=== PATIENT | female | born 1955 | race Caucasian/White ===

== ENCOUNTER 2019-02-19 18:21 | Inpatient (IN) ==
--- OUTSIDE RECORDS SUMMARY | 2019-02-19 18:24 | External Medical Summary | Continuity of Care Document ---
:1955 Author Name Billie Gong, Provider Address Unavailable Unavailable , Care Team Providers Name Role Phone Constance Wright M.D. Unavailable [email or web address], [email or web address] Unavailable Unavailable Problems Active medical history not documented Allergies and Adverse Reactions Allergy history not documented Medications Medications not documented Procedures Procedures not documented Immunizations Immunizations not documented Plan of Treatment Planned Observations Planned Goals not documented Results No Known Results Results not documented
[2019-02-19 18:47] LABS: Basophils # (auto) 0.03 K/uL (0-0.2); Basophils % (auto) 0.3 %; Eosinophils # (auto) 0.21 K/uL (0-0.5); Eosinophils % (auto) 2.1 %; Hematocrit (blood only) 37.1 % (37-47); Hemoglobin 12.2 g/dL (12.0-16.0); Immature Granulocytes # (auto) 0.04 K/uL (0.00-0.02); Immature Granulocytes % (auto) 0.4 %; Lymphocytes # (auto) 2.28 K/uL (1.2-3.4); Lymphocytes % (auto) 23.3 %; Mean Corpuscular Hgb Conc 32.9 g/dL (32-36); Mean Corpuscular Volume 79.6 fL (80-100); Mean Platelet Volume 9.7 fL (7.4-10.4); Monocytes # (auto) 0.52 K/uL (0.11-0.59); Monocytes % (auto) 5.3 %; Neutrophils # (auto) 6.71 K/uL (1.4-6.5); Neutrophils % (auto) 68.6 %; Platelet Count 286 K/uL (130-400); RDW Coefficient of Variation 14.8 % (11.5-14.5); RDW Standard Deviation 42.6 fL (36.4-46.3); Red Blood Count 4.66 M/uL (4.2-5.4); White Blood Count 9.79 K/uL (4.8-10.8)
[2019-02-19 18:56] LABS: iSTAT Creatinine 0.6 mg/dl (0.6-1.3); iSTAT Hemoglobin 11.9 g/dl (12.0-16.0); iSTAT Ionized Calcium 1.08 mmol/l (1.12-1.32); iSTAT Potassium 3.9 mEq/L (3.3-5.0)
[2019-02-19 18:59] LABS: Partial Thromboplastin Ratio 0.9; Partial Thromboplastin Time 25.6 Seconds (21.0-31.0); Prothrombin Time 10.5 Seconds (9.0-12.0)
[2019-02-19] MEDS ORDERED: OPTIRAY 320 125ml IV PRN (19:02)
--- NOTE | 2019-02-19 19:04 | CT Scan Report ---
CT head/brain wo con CT DOSE: HISTORY: Status change Stroke evaluation TECHNIQUE: Multiaxial CT images of the head were performed without the use of intravenous contrast. A dose lowering technique was utilized adhering to the principles of ALARA. Comparison: None. Findings: The paranasal sinuses and mastoid air cells are clear. Small old right internal capsule inf arct. Subacute right periventricular infarct. No acute intracranial hemorrhage. No midline shift. Impression: 1. Subacute right periventricular infarct. 2. 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 3. No acute intracranial hemorrhage. The above report was generated using voice recognition software. It may contain grammatical, syntax or spelling errors. Electronically signed by: Fercho Hernandez M.D. 02/19/2019 6:57 PM
--- NOTE | 2019-02-19 19:04 | CT Scan Report ---
CT angio head w con HISTORY: Mental status change stroke TECHNIQUE: Multiaxial CT angiography of the head was performed IV contrast: 100 cc. Maximum intensity projection images were also obtained. A dose lowering technique was utilized adhering to t he principles of ALARA. COMPARISON: None. FINDINGS: There is no mass, hematoma, midline shift, or acute infarct. Visualized intracranial international trade analyst al carotid arteries, distal vertebral arteries, and basilar artery are widely patent. There is no sig nificant stenosis, occlusion, or aneurysm seen within the bilateral ACAs, MCAs, or perinatal breastfeeding assistant. IMPRESSION: No significant stenosis, occlusion, or aneurysm within the [place]. The above report was generated using voice recognition software. It may contain grammatical, syntax or spelling errors. Electronically signed by: Fercho Hernandez M.D. 02/19/2019 7:00 PM
--- NOTE | 2019-02-19 19:10 | CT Scan Report ---
CT angio neck with con HISTORY: Mental status change stroke TECHNIQUE: Multiaxial CT angiography of the neck was performed IV contrast: 100 cc All measure ments were calculated based on NASCET criteria. Maximum intensity projection images were also obtain ed. A dose lowering technique was utilized adhering to the principles of ALARA. COMPARISON STUDY: None. FINDINGS: The aortic arch and proximal great vessels are widely patent. There is no significant sten osis, occlusion, or dissection identified within the bilateral common carotid, internal carotid, or v ertebral arteries. IMPRESSION: No significant stenosis, occlusion, or dissection identified within the carotid or vertebral arteries . The above report was generated using voice recognition software. It may contain grammatical, syntax or spelling errors. Electronically signed by: Fercho Hernandez M.D. 02/19/2019 7:09 PM
[2019-02-19] MEDS ORDERED: LABETALOL HCL IV 5 MG/ML 20ML IV ONE (19:18)
[2019-02-19 19:32] LABS: Alanine Aminotransferase 28 U/L (12-78); Albumin Level 3.5 gm/dl (3.4-5.0); Aspartate Aminotransferase 19 U/L (15-37); BUN Creatinine Ratio 24.6 (10-20); Blood Urea Nitrogen 20 mg/dl (7-18); Calcium 8.5 mg/dl (8.5-10.1); Carbon Dioxide 27 mmol/L (21-32); Chloride 104 mmol/L (98-107); Est GFR (African American) 91.6; Glucose 226 mg/dl (70-99); Magnesium 1.6 mg/dl (1.8-2.4); Potassium 3.9 mmol/L (3.5-5.1); Sodium 139 mmol/L (136-145)
[2019-02-19 19:39] LABS: Albumin Globulin Ratio 0.9 (0.9-2); Alkaline Phosphatase 76 U/L (45-117); Bilirubin,Total 0.3 mg/dl (0.2-1); Globulin 3.9 gm/dl (2.5-4.0); Total Protein 7.4 gm/dl (6.4-8.2); Troponin I < 0.015 ng/ml (0-0.045)
--- NOTE | 2019-02-19 19:44 | Emergency Department Note ---
Entered by Chava Cuellar acting as a scribe for Zane Mijares M.D. History of Present Illness General Chief complaint: Stroke Alert Stated complaint: FACIAL NUMBNESS Source: patient and EMS History of Present Illness Provider complaint: Facial numbness Onset (ago): hour(s) (Today) Location: face Radiation: non-radiation Pain Consistency: + intermittent Quality: + other (Numbness) Relieved By: + none Exacerbated By: + none Associated symptoms: + other (No falls) The patient is a 63 year old female who presents to the Emergency Room via EMS with complaints of intermittent right sided facial numbness that started today around 3.5 hours ago. Per EMS the patient was hypertensive on scene with a systolic pressure of 210. En route the patient had an episode of muscle contractions where she was unable to speak. After the episode she told EMS that it was because her face is numb. Just prior to arrival the patient became nonv erbal but can still understand commands. The patient has a history of a stroke 9 years ago leaving her with baseline left sided weakness and speech impairments. The patient denies any falls or if something like this has ever happened before. The patient does not take any blood thinners but does take Aspirin daily. Home Medications Home Medications Medication Instructions Recorded Confirmed Type aspirin [Aspir-81] 81 mg PO DAILY 02/19/19 02/19/19 History baclofen 20 mg PO BID 02/19/19 02/19/19 History carvedilol 12.5 mg PO BID 02/19/19 02/19/19 History cyanocobalamin (vitamin B-12) 1,000 mcg PO DAILY 02/19/19 02/19/19 History diclofenac sodium 75 mg PO BID 02/19/19 02/19/19 History furosemide 20 mg PO DAILY 02/19/19 02/19/19 History insulin aspart U-100 [Novolog 10 unit SUBCUT AC 02/19/19 02/19/19 History Flexpen U-100 Insulin] insulin glargine [Basaglar KwikPen 44 unit SUBCUT HS 02/19/19 02/19/19 History U-100 Insulin] losartan-hydrochlorothiazide 1 tab PO DAILY 02/19/19 02/19/19 History magnesium oxide 400 mg PO DAILY 02/19/19 02/19/19 History metformin 1,000 mg PO BID 02/19/19 02/19/19 History omeprazole 20 mg PO DAILY 02/19/19 02/19/19 History potassium chloride 10 meq PO BID 02/19/19 02/19/19 History rosuvastatin 20 mg PO DAILY 02/19/19 02/19/19 History trazodone 50 mg PO HS 02/19/19 02/19/19 History Allergies Allergy/AdvReac Type Severity Reaction Status Date / Time No Known Allergies Allergy Unverified 02/19/19 20:08 Past Med/Surg History Medical History CVA (cerebral vascular accident) Diabetes HLD (hyperlipidemia) Hypertension Family History Other Family history non-contributory Social History Preferred Language: Italian Communication Ability: Effective Automatic Silk Screen Printer Required: No Beliefs That Will Affect Care: None Current Living Situation: Alone Current Living Situation Comment: Patient states she lived alone at home with her dog Other Information That Helps Us Care for You: No Feels Safe at Home: Yes Safety Concerns: Feels Safe At This Time Smoking Status: Former smoker Do You Dip or Chew Tobacco: No Second Hand Exposure: No Tobacco Cessation Education Requested by Patient: No Hx Alcohol Use: No Hx Substance Use: No Review of Systems See HPI for pertinent positives & negatives. and A total of 10 systems reviewed and were otherwise negative Physical Exam Vital Signs Vital Signs - 24 hr 02/19/19 18:30 02/19/19 18:56 02/19/19 19:02 Temperature 36.9 C Temperature Source Oral Sepsis Recent Fever Within 48 Hours No Sepsis New/Unexplained Change in Mental Status No Sepsis Action Taken by Nursing No Action Required Pulse Rate 72 Pulse Rate [Apical] 86 80 Pulse Rhythm Regular Pulse Rhythm [Apical] Regular Pulse Strength Normal Pulse Strength [Apical] Normal Respiratory Rate 16 17 22 Respiratory Effort / Characteristics Non-Labored Non-Labored Non-Labored Respiratory Depth Normal Normal Normal Respiratory Pattern Regular Regular Regular Blood Pressure 210/131 H Blood Pressure [Left Arm] 186/74 H 201/98 H Blood Pressure Mean 157 Blood Pressure Mean [Left Arm] 111 132 Blood Pressure Position Lying Blood Pressure Position [Left Arm] Lying Lying Pulse Oximetry 96 93 93 Oxygen Delivery Method Room Air Room Air Room Air 02/19/19 19:16 02/19/19 19:23 02/19/19 19:31 Temperature Temperature Source Sepsis Recent Fever Within 48 Hours Sepsis New/Unexplained Change in Mental Status Sepsis Action Taken by Nursing Pulse Rate Pulse Rate [Apical] 74 72 67 Pulse Rhythm Pulse Rhythm [Apical] Regular Regular Pulse Strength Pulse Strength [Apical] Normal Normal Respiratory Rate 22 26 H 15 Respiratory Effort / Characteristics Non-Labored Non-Labored Non-Labored Respiratory Depth Normal Normal Normal Respiratory Pattern Regular Regular Regular Blood Pressure Blood Pressure [Left Arm] 223/101 H 185/108 H 177/92 H Blood Pressure Mean Blood Pressure Mean [Left Arm] 141 133 120 Blood Pressure Position Blood Pressure Position [Left Arm] Lying Lying Lying Pulse Oximetry 94 94 96 Oxygen Delivery Method Room Air Room Air Room Air 02/19/19 20:02 02/19/19 20:21 02/19/19 20:30 Temperature Temperature Source Sepsis Recent Fever Within 48 Hours Sepsis New/Unexplained Change in Mental Status Sepsis Action Taken by Nursing Pulse Rate Pulse Rate [Apical] 70 72 64 Pulse Rhythm Pulse Rhythm [Apical] Regular Regular Regular Pulse Strength Pulse Strength [Apical] Normal Normal Normal Respiratory Rate 22 20 22 Respiratory Effort / Characteristics Non-Labored Non-Labored Non-Labored Respiratory Depth Normal Normal Normal Respiratory Pattern Regular Regular Regular Blood Pressure Blood Pressure [Left Arm] 195/100 H 218/90 H 179/95 H Blood Pressure Mean Blood Pressure Mean [Left Arm] 131 132 123 Blood Pressure Position Blood Pressure Position [Left Arm] Lying Lying Lying Pulse Oximetry 94 94 94 Oxygen Delivery Method Room Air Room Air Room Air 02/19/19 20:57 Temperature Temperature Source Sepsis Recent Fever Within 48 Hours Sepsis New/Unexplained Change in Mental Status Sepsis Action Taken by Nursing Pulse Rate Pulse Rate [Apical] 71 Pulse Rhythm Pulse Rhythm [Apical] Regular Pulse Strength Pulse Strength [Apical] Normal Respiratory Rate 22 Respiratory Effort / Characteristics Non-Labored Respiratory Depth Normal Respiratory Pattern Regular Blood Pressure Blood Pressure [Left Arm] 220/93 H Blood Pressure Mean Blood Pressure Mean [Left Arm] 135 Blood Pressure Position Blood Pressure Position [Left Arm] Lying Pulse Oximetry 94 Oxygen Delivery Method Room Air GENERAL: Awake, alert, anxious but not able to talk HENT: Normocephalic, atraumatic. EYES: Normal conjunctiva. Sclera non-icteric. PERRL, EOMI, no nystagmus. NECK: Supple. No nuchal rigidity. RESPIRATORY: Clear to auscultation. No wheezes. Normal respiratory effort. CARDIAC: Normal rate. Normal rhythm. Extremities warm and well perfused. GI: Soft, non-distended. No tenderness to palpation. No masses. RECTAL: Deferred. MUSCULOSKELETAL: Atraumatic. Chest examination reveals no tenderness. LOWER EXTREMITIES: Calves are equal size bilaterally and non-tender. No edema NEURO: Aphasic, will mumble, nods yes and no to questions. No facial droop. Minimal movement with contracture of the LUE. 3/5 strength of the LLE. 5/5 strength of the RLE and RUE. SKIN: Warm and dry. No rash or jaundice noted. Course 1825: The patient was evaluated in room A11B, and a complete history and physical examination were performed. 1839: I spoke to Dr. Sarah Goins about the patient's case. He is going to evaluate her via video chat. 1926: I spoke to Dr. Sarah Goins after he evaluated the patient. He does not recommend TPA and it should be treated as a hypertension emergency. He recommends blood pressure control and admission. 1944: I spoke to Dr. Ned Kidd about the patient's case and he is going accept her for further evaluation. 1950: I reevaluated the patient and updated her on the treatment plan. Consultations Consultation #1: I spoke to Dr. Sarah Goins about the patient's case. He is going to evaluate her via video chat. Time: 18:40 Consultation #2: I spoke to Dr. Sarah Goins after he evaluated t he patient. He does not recommend TPA and it should be treated as a hypertension emergency. He recommends blood pressure control and admission. Time: 19:27 Consultation #3: I spoke to Dr. Ned Kidd about the patient's case and he is going accept her for further evaluation. Time: 19:45 Administered Medications Labetalol HCl (Normodyne) 10 mg IV Q4H PRN PRN Reason: Hypertension Stop: 03/21/19 20:59 Last Admin: 02/19/19 21:05 Dose: 10 mg Documented by: [id number] Cosigned by: [id number] Discontinued Medications Ioversol (Optiray 320 125ml) 121 ml IV ONCE PRN PRN Reason: Interaction Checking Stop: 02/23/19 19:01 Last Admin: 02/19/19 19:02 Dose: 121 ml Documented by: [id number] Labetalol HCl (Normodyne) Confirm Administered Dose 5 mg IV .STK-MED ONE Stop: 02/19/19 19:19 Last Admin: 02/19/19 19:19 Dose: 10 mg Documented by: [id number] Cosigned by: [id number] Medical Decision Making Differential Diagnosis Differential Diagnosis includes but is not limited to ischemic Stroke, hemorrhagic stroke, bells palsy, mass, neoplasm, migraine headache, seizure, subarachnoid hemorrhage, TIA, and transient global amnesia. Medical Records Attestation: I reviewed the patient's medical records. Home Medications Current Medication List: was personally reviewed by me Laboratory Data Attestation: I reviewed the patient's lab results. Result diagrams: 02/19/19 18:38 02/19/19 18:38 Lab Results 02/19/19 02/19/19 02/19/19 Range/Units 18:28 18:38 18:38 WBC 9.79 (4.8-10.8) K/uL RBC 4.66 (4.2-5.4) M/uL Hgb 12.2 (12.0-16.0) g/dL POC Hgb (12.0-16.0) g/dl Hct 37.1 (37-47) % POC Hct (37-47) % MCV 79.6 L (80-100) fL MCH 26.2 (25-34) pg MCHC 32.9 (32-36) g/dL RDW Std Deviation 42.6 (36.4-46.3) fL RDW Coeff of Kimberly 14.8 H (11.5-14.5) % Plt Count 286 (130-400) K/uL MPV 9.7 (7.4-10.4) fL Immature Gran % (Auto) 0.4 % Neut % (Auto) 68.6 % Lymph % (Auto) 23.3 % [place] % (Auto) 5.3 % Eos % (Auto) 2.1 % Baso % (Auto) 0.3 % Immature Gran # (Auto) 0.04 H (0.00-0.02) K/uL Neut # (Auto) 6.71 H (1.4-6.5) K/uL Lymph # (Auto) 2.28 (1.2-3.4) K/uL [place] # (Auto) 0.52 (0.11-0.59) K/uL Eos # (Auto) 0.21 (0-0.5) K/uL Baso # (Auto) 0.03 (0-0.2) K/uL PT 10.5 (9.0-12.0) Seconds INR 1.0 (0.9-1.1) APTT 25.6 (21.0-31.0) Seconds PTT Ratio 0.9 POC Sodium (135-144) mEq/L Sodium (136-145) mmol/L POC Potassium (3.3-5.0) mEq/L Potassium (3.5-5.1) mmol/L POC Chloride (101-112) mEq/L Chloride (98-107) mmol/L Carbon Dioxide (21-32) mmol/L POC Total CO2 (24-31) mEq/l Anion Gap (3-11) POC Anion Gap (16-25) mmol/L POC BUN (7-18) mg/dl BUN (7-18) mg/dl Creatinine (0.6-1.2) mg/dl POC Creatinine (0.6-1.3) mg/dl Est Cr Clr Drug Dosing ml/min Est GFR ( Amer) Est GFR (Non-Af Amer) BUN/Creatinine Ratio (10-20) Glucose (70-99) mg/dl POC Glucose 223 H (70-99) POC Glucose (other) (70-99) mg/dl Calcium (8.5-10.1) mg/dl POC Ioniz Calcium Ning (1.12-1.32) mmol/l Magnesium (1.8-2.4) mg/dl Total Bilirubin (0.2-1) mg/dl AST (15-37) U/L ALT (12-78) U/L Alkaline Phosphatase (45-117) U/L Troponin I (0-0.045) ng/ml Total Protein (6.4-8.2) gm/dl Albumin (3.4-5.0) gm/dl Globulin (2.5-4.0) gm/dl Albumin/Globulin Ratio (0.9-2) TSH (0.300-4.500) uIu/ml Specimen Hemolysis Urine Color Urine Appearance (Clear) Urine pH (4.5-7.5) Ur Specific [place] (1.000-1.030) Urine Protein (Negative) Urine Glucose (UA) (Negative) Urine Ketones (Negative) Urine Blood (Negative) Urine Nitrite (Negative) Urine Bilirubin (Negative) Urine Urobilinogen (Negative) Ur Leukocyte Esterase (Negative) Urine WBC (Auto) (0-5) /hpf Urine RBC (Auto) (0-4) /hpf U Hyaline Cast (Auto) (0-5) /lpf U Epithel Cells (Auto) (0-5) /lpf Urine Bacteria (Auto) (Negative) Blood Type Antibody Screen 02/19/19 02/19/19 02/19/19 Range/Units 18:38 18:38 18:44 WBC (4.8-10.8) K/uL RBC (4.2-5.4) M/uL Hgb (12.0-16.0) g/dL POC Hgb 11.9 L (12.0-16.0) g/dl Hct (37-47) % POC Hct 35 L (37-47) % MCV (80-100) fL MCH (25-34) pg MCHC (32-36) g/dL RDW Std Deviation (36.4-46.3) fL RDW Coeff of Kimberly (11.5-14.5) % Plt Count (130-400) K/uL MPV (7.4-10.4) fL Immature Gran % (Auto) % Neut % (Auto) % Lymph % (Auto) % [place] % (Auto) % Eos % (Auto) % Baso % (Auto) % Immature Gran # (Auto) (0.00-0.02) K/uL Neut # (Auto) (1.4-6.5) K/uL Lymph # (Auto) (1.2-3.4) K/uL [place] # (Auto) (0.11-0.59) K/uL Eos # (Auto) (0-0.5) K/uL Baso # (Auto) (0-0.2) K/uL PT (9.0-12.0) Seconds INR (0.9-1.1) APTT (21.0-31.0) Seconds PTT Ratio POC Sodium 140 (135-144) mEq/L Sodium 139 (136-145) mmol/L POC Potassium 3.9 (3.3-5.0) mEq/L Potassium 3.9 (3.5-5.1) mmol/L POC Chloride 104 (101-112) mEq/L Chloride 104 (98-107) mmol/L Carbon Dioxide 27 (21-32) mmol/L POC Total CO2 27 (24-31) mEq/l Anion Gap 8.0 (3-11) POC Anion Gap 13.0 L (16-25) mmol/L POC BUN 22 H (7-18) mg/dl BUN 20 H (7-18) mg/dl Creatinine 0.80 (0.6-1.2) mg/dl POC Creatinine 0.6 (0.6-1.3) mg/dl Est Cr Clr Drug Dosing 84.0 ml/min Est GFR ( Amer) 91.6 Est GFR (Non-Af Amer) 79.0 BUN/Creatinine Ratio 24.6 H (10-20) Glucose 226 H (70-99) mg/dl POC Glucose (70-99) POC Glucose (other) 233 H (70-99) mg/dl Calcium 8.5 (8.5-10.1) mg/dl POC Ioniz Calcium Ning 1.08 L (1.12-1.32) mmol/l Magnesium 1.6 L (1.8-2.4) mg/dl Total Bilirubin 0.3 (0.2-1) mg/dl AST 19 (15-37) U/L ALT 28 (12-78) U/L Alkaline Phosphatase 76 (45-117) U/L Troponin I < 0.015 (0-0.045) ng/ml Total Protein 7.4 (6.4-8.2) gm/dl Albumin 3.5 (3.4-5.0) gm/dl Globulin 3.9 (2.5-4.0) gm/dl Albumin/Globulin Ratio 0.9 (0.9-2) TSH 3.540 (0.300-4.500) uIu/ml Specimen Hemolysis Urine Color Urine Appearance (Clear) Urine pH (4.5-7.5) Ur Specific [place] (1.000-1.030) Urine Protein (Negative) Urine Glucose (UA) (Negative) Urine Ketones (Negative) Urine Blood (Negative) Urine Nitrite (Negative) Urine Bilirubin (Negative) Urine Urobilinogen (Negative) Ur Leukocyte Esterase (Negative) Urine WBC (Auto) (0-5) /hpf Urine RBC (Auto) (0-4) /hpf U Hyaline Cast (Auto) (0-5) /lpf U Epithel Cells (Auto) (0-5) /lpf Urine Bacteria (Auto) (Negative) Blood Type A Positive Antibody Screen NEGATIVE 02/19/19 Range/Units 20:21 WBC (4.8-10.8) K/uL RBC (4.2-5.4) M/uL Hgb (12.0-16.0) g/dL POC Hgb (12.0-16.0) g/dl Hct (37-47) % POC Hct (37-47) % MCV (80-100) fL MCH (25-34) pg MCHC (32-36) g/dL RDW Std Deviation (36.4-46.3) fL RDW Coeff of Kimberly (11.5-14.5) % Plt Count (130-400) K/uL MPV (7.4-10.4) fL Immature Gran % (Auto) % Neut % (Auto) % Lymph % (Auto) % [place] % (Auto) % Eos % (Auto) % Baso % (Auto) % Immature Gran # (Auto) (0.00-0.02) K/uL Neut # (Auto) (1.4-6.5) K/uL Lymph # (Auto) (1.2-3.4) K/uL [place] # (Auto) (0.11-0.59) K/uL Eos # (Auto) (0-0.5) K/uL Baso # (Auto) (0-0.2) K/uL PT (9.0-12.0) Seconds INR (0.9-1.1) APTT (21.0-31.0) Seconds PTT Ratio POC Sodium (135-144) mEq/L Sodium (136-145) mmol/L POC Potassium (3.3-5.0) mEq/L Potassium (3.5-5.1) mmol/L POC Chloride (101-112) mEq/L Chloride (98-107) mmol/L Carbon Dioxide (21-32) mmol/L POC Total CO2 (24-31) mEq/l Anion Gap (3-11) POC Anion Gap (16-25) mmol/L POC BUN (7-18) mg/dl BUN (7-18) mg/dl Creatinine (0.6-1.2) mg/dl POC Creatinine (0.6-1.3) mg/dl Est Cr Clr Drug Dosing ml/min Est GFR ( Amer) Est GFR (Non-Af Amer) BUN/Creatinine Ratio (10-20) Glucose (70-99) mg/dl POC Glucose (70-99) POC Glucose (other) (70-99) mg/dl Calcium (8.5-10.1) mg/dl POC Ioniz Calcium Ning (1.12-1.32) mmol/l Magnesium (1.8-2.4) mg/dl Total Bilirubin (0.2-1) mg/dl AST (15-37) U/L ALT (12-78) U/L Alkaline Phosphatase (45-117) U/L Troponin I (0-0.045) ng/ml Total Protein (6.4-8.2) gm/dl Albumin (3.4-5.0) gm/dl Globulin (2.5-4.0) gm/dl Albumin/Globulin Ratio (0.9-2) TSH (0.300-4.500) uIu/ml Specimen Hemolysis Urine Color Yellow Urine Appearance Clear (Clear) Urine pH 5.0 (4.5-7.5) Ur Specific [place] > 1.045 H (1.000-1.030) Urine Protein Negative (Negative) Urine Glucose (UA) 2+ H (Negative) Urine Ketones Negative (Negative) Urine Blood Negative (Negative) Urine Nitrite Negative (Negative) Urine Bilirubin Negative (Negative) Urine Urobilinogen Negative (Negative) Ur Leukocyte Esterase 1+ H (Negative) Urine WBC (Auto) 10-30 H (0-5) /hpf Urine RBC (Auto) 0-4 (0-4) /hpf U Hyaline Cast (Auto) 0 (0-5) /lpf U Epithel Cells (Auto) >30 H (0-5) /lpf Urine Bacteria (Auto) 1+ H (Negative) Blood Type Antibody Screen Imaging Data Radiologist's Impression: Radiology results as stated below per my review and the radiologist's interpretation: XR chest 1V portable CLINICAL HISTORY: sob dyspnea COMPARISON STUDY: No previous studies for comparison. FINDINGS: Mild cardiomegaly. Prominent pulmonary vasculature. No focal infiltrate. Diaphragms smooth. IMPRESSION: Pulmonary vascular congestion. The above report was generated using voice recognition software. It may contain grammatical, syntax or spelling errors. Electronically signed by: Fercho Hernandez M.D. 02/19/2019 7:[address] angio head w con HISTORY: Mental status change stroke TECHNIQUE: Multiaxial CT angiography of the head was performed IV contrast: 100 cc. Maximum intensity projection images were also obtained. A dose lowering technique was utilized adhering to the principles of ALARA. COMPARISON: None. FINDINGS: There is no mass, hematoma, midline shift, or acute infarct. Visualized intracranial internal carotid arteries, distal vertebral arteries, and basilar artery are widely patent. There is no significant stenosis, occlusion, or aneurysm seen within the bilateral ACAs, MCAs, or spray worker. IMPRESSION: No significant stenosis, occlusion, or aneurysm within the [place]. The above report was generated using voice recognition software. It may contain grammatical, syntax or spelling errors. Electronically signed by: Fercho Hernandez M.D. 02/19/2019 7:[address] head/brain wo con CT DOSE: HISTORY: Status change Stroke evaluation TECHNIQUE: Multiaxial CT images of the head were performed without the use of intravenous contrast. A dose lowering technique was utilized adhering to the principles of ALARA. Comparison: None. Findings: The paranasal sinuses and mastoid air cells are clear. Small old right internal capsule infarct. Subacute right periventricular infarct. No acute intracranial hemorrhage. No midline shift. Impression: 1. Subacute right periventricular infarct. 2. 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 3. No acute intracranial hemorrhage. The above report was generated using voice recognition software. It may contain grammatical, syntax or spelling errors. Electronically signed by: Fercho Hernandez M.D. 02/19/2019 6:[address] angio neck with con HISTORY: Mental status change stroke TECHNIQUE: Multiaxial CT angiography of the neck was performed IV contrast: 100 cc All measurements were calculated based on NASCET criteria. Maximum intensity projection images were also obtained. A dose lowering technique was utilized adhering to the principles of ALARA. COMPARISON STUDY: None. FINDINGS: The aortic arch and proximal great vessels are widely patent. There i s no significant stenosis, occlusion, or dissection identified within the bilateral common carotid, internal carotid, or vertebral arteries. IMPRESSION: No significant stenosis, occlusion, or dissection identified within the carotid or vertebral arteries. The above report was generated using voice recognition software. It may contain grammatical, syntax or spelling errors. Electronically signed by: Fercho Hernandez M.D. 02/19/2019 7:09 PM ECG Data Attestation: I personally reviewed and interpreted this ECG as follows: Indication: other (Numbness) Rate (beats per minute): 82 Rhythm: normal sinus Findings: + T-wave inversion (Lead 3); no PVC, no ST depression and no ST elevation Blood Pressure Blood Pressure Findings: Elevated blood pressure Blood Pressure Disposition: further management by hospitalist ROSE Narrative Patient is a 63-year-old female with a past medical history of diabetes, hypertension, hyperlipidemia, CVA presenting today initially called EMS for facial numbness. In route had a very transient according to EMS 32nd episode which was not speaking but then quickly resolved. Has residual left-sided arm and leg deficits according to report. Patient denies pain here but upon arrival and according to EMS around 610 to 6:15 PM developed severe aphasia. No gaze preference. No real facial droop. Appears to have intact motor and sensory function of the right upper and lower extremity. Decreased movement of the left upper and lower extremity. Patient's unable to speak words and states that she can understand things by nodding but not able to speak. Significant a hypertensive here. Patient is supposedly on aspirin. There is no trauma reported. Patient made a stroke alert. Discussed with [facility] tele-stroke. On return from CT scan the patient's aphasia has resolved and was speaking in full sentences clearly. Patient's daughter arrived and states that anxiety component. Patient daughter also relates this is similar to what happened when she had her stroke several years ago. Laboratory studies show no significant EKG without significant findings and troponins negative. Slight hypomagnesemia noted. No kidney dysfunction. Chest x-ray is unremarkable and I doubt this is primary pulmonary pathology. CT head with questionable subacute right periventricular infarct. Tele-stroke concurs not to initiate TPA given waxing and waning course and sequences with hypertensive emergency. Given labetalol for blood pressure control. We will try to maintain blood pressure less than 200 at this time. Did require redosing of labetalol and one brief episode of recurrance. Patient endorses full resolution of symptoms. Will contact [facility] for admission. Impression & Plan Hypertensive emergency, Aphasia Critical Care Time I have personally spent greater than 45 minutes of critical care time in the direct management of this patient. This includes bedside care, interpretation of diagnostic studies, and testing, discussion with consultants, patient, and family members, and other required patient management activities. This 45 minutes is in excess of all separately billable procedures. Critical Care Time: Yes Total Critical Care Time: 45 Discharge Plan Visit Data *Final* Discharge Date/Time: 02/19/19 21:37 Chief Complaint: Stroke Alert Stated Complaint: FACIAL NUMBNESS ED Provider: Zane Mijares Discharge Problem: Hypertensive emergency, Aphasia Patient Disposition: Admitted As Inpatient Discharge Instructions Interventions: ED Discharge Assessment Last Done: 02/19/19 21:37 The scribe's documentation has been prepared under my direction and personally reviewed by me in its entirety. I confirm that the note above accurately reflects all work, treatment, procedures, and medical decision making performed by me.
--- NOTE | 2019-02-19 20:00 | XRay Report ---
XR chest 1V portable CLINICAL HISTORY: sob dyspnea COMPARISON STUDY: No previous studies for comparison. FINDINGS: Mild cardiomegaly. Prominent pulmonary vasculature. No focal infiltrate. Diaphragms smooth. IMPRESSION: Pulmonary vascular congestion. The above report was generated using voice recognition software. It may contain grammatical, syntax or spelling errors. Electronically signed by: Fercho Hernandez M.D. 02/19/2019 7:59 PM
[2019-02-19 20:34] LABS: Appearance Urine Clear (Clear); Bacteria Urine Automated 1+ (Negative); Bilirubin Urine Negative (Negative); Blood Urine Negative (Negative); Cast Urine Automated 0 /lpf (0-5); Color Urine Yellow; Epithelial Cell Urine Auto >30 /lpf (0-5); Glucose Urine UA 2+ (Negative); Ketones Urine Negative (Negative); Leukocyte Esterase Urine 1+ (Negative); Nitrite Urine Negative (Negative); Protein Urine Negative (Negative); RBC Urine Automated 0-4 /hpf (0-4); Specific Gravity Urine > 1.045 (1.000-1.030); Urobilinogen Urine Negative (Negative)
[2019-02-19] MEDS ORDERED: CARVEDILOL 12.5 MG TAB PO SCH (21:00)
[2019-02-19] MEDS ORDERED: CLOPIDOGREL BISULFATE 75 MG TAB PO STA (21:00)
[2019-02-19] MEDS ORDERED: INSULIN GLARGINE SOLOSTAR 100 UNITS/ML 3 ML PEN SQ SCH (21:00)
[2019-02-19] MEDS ORDERED: LABETALOL HCL IV 5 MG/ML 20ML IV PRN (21:00)
[2019-02-19] MEDS ORDERED: OXYCODONE HCL IR 5 MG TAB (IMMEDIATE RELEASE) PO PRN (22:04)
[2019-02-19] MEDS ORDERED: POLYETHYLENE (MIRALAX) 17 GM PACK PO PRN (22:04)
[2019-02-19] MEDS ORDERED: SODIUM CHLORIDE 0.9% 1000ML 1,000 ML IV SCH (22:04)
[2019-02-19] MEDS ORDERED: PHARMACIST DISCHARGE MED REC CONSULT PRN (22:04)
[2019-02-19] MEDS ORDERED: TRAZODONE HCL 50 MG TAB PO SCH (22:04)
[2019-02-19] MEDS ORDERED: ONDANSETRON INJ 2 MG/ML 2 ML VIAL IV PRN (22:04)
[2019-02-19] MEDS ORDERED: ACETAMINOPHEN 325 MG TAB PO PRN (22:04)
[2019-02-19] MEDS ORDERED: NITROGLYCERIN SL 0.4 MG/TAB TAB SL PRN (22:04)
--- NOTE | 2019-02-19 22:08 | History and Physical Report ---
DATE OF ADMISSION: 02/19/2019 CHIEF COMPLAINT: Stroke-like symptoms. HISTORY OF PRESENT ILLNESS: This is a 63-year-old female with past medical history significant for type 2 diabetes, hypomagnesemia, history of CVA, history of left-sided weakness about 8-9 years ago, hypertension, morbid obesity, osteoarthritis of hip, depression, primary insomnia, presents with stroke-like symptoms. The patient lives alone; around 3:00 p.m. she went outside with her dog when she suddenly felt numbness in the right side of the face. She tried to call her kids and could not get answer back, then she called her sister and EMS was called in and she was brought into the hospital and on the way she had a brief episode of difficulty speaking. In the ER, around 6 p.m. she suddenly became aphasic, stroke alert was called and by the time she went to CAT scan and came back, her speech came back to normal. CT of the head showed subacute right periventricular infarct, old right internal capsule infarct, no acute intracranial hemorrhage. CTA of the head and neck were unremarkable. Her symptoms improved. No TPA was given as her symptoms improved. The blood pressure was high at that time and daughter says because of her high blood pressure maybe she had symptoms. As per daughter patient wont check her blood pressure at home.. The patient is alert and awake, oriented to name and place, somewhat confused with time thinking this is 2012 though tells day and month correctly, but answers all other questions appropriately. Denies any headaches, no blurred vision, no earache, no runny nose, no sore throat. There is some cough on and off. No difficulty swallowing. On regular diet. During the episode, she had some shortness of breath but currently no shortness of breath, no chest pain, no nausea, no vomiting, no abdominal pain. Normal bowel and bladder movements. No blood in the stools or black stools, no hematuria, no burning micturition. Appetite is okay. She says that her sugars are running okay at home. She has some weakness in left side from her previous stroke, but ambulates okay. No swelling of the legs. No recent fever or chills. ALLERGIES: No known drug allergies. PAST MEDICAL HISTORY: As mentioned above. PAST SURGICAL HISTORY: Total abdominal hysterectomy with removal of the tubes. MEDICATIONS AT HOME: The patient is on baclofen 20 mg p.o. b.i.d. p.r.n. for muscle pain, potassium chloride 10 mEq p.o. b.i.d., Coreg 12.5 mg p.o. b.i.d., vitamin B12 1000 mcg p.o. daily, Lasix 20 mg p.o. daily p.r.n. for swelling, Lantus 44 units at bedtime, trazodone 50 mg p.o. at bedtime, diclofenac sodium 125 mg p.o. b.i.d., Crestor 20 mg p.o. daily, Hyzaar 100/25 mg 1 tablet daily, magnesium oxide 400 mg p.o. daily, metformin 1000 mg p.o. b.i.d., NovoLog FlexPen 10 units t.i.d., omeprazole 20 mg p.o. daily, aspirin 81 mg p.o. daily. FAMILY HISTORY: Significant for sister who had ovarian cancer. Father has heart disorder. Maternal grandmother had breast cancer and bone cancer and heart disorder, and hypotension. SOCIAL HISTORY: Lives alone. Former smoker, quit in 1984. No alcohol use, no drug use. REVIEW OF SYMPTOMS: As per HPI. Rest of review of symptoms negative. PHYSICAL EXAMINATION: GENERAL: The patient is obese, not in acute distress. VITAL SIGNS: Temperature 36.9, pulse 71, respiratory rate 22, blood pressure when she came in was 210/93, oxygen 94% room air. HEENT: No pallor, no icterus. Pupils equal, round, and reactive to light. NECK: No JVD, no neck masses, no carotid bruits. CARDIOVASCULAR: S1, S2 heard, regular rate and rhythm, no murmur, no gallop. RESPIRATORY SYSTEM: Normal AP diameter. No accessory muscle use. No wheezing, no crackles. ABDOMEN: Soft, bowel sounds present. Nontender. No distention. CENTRAL NERVOUS SYSTEM: 4/5 in left extremities, 5/5 in right extremities, could not lift left upper extremity, but right extremity no pronator drift. Sensation is intact. Position sense intact. Babinski negative. Alert and oriented to name, placed, could tell month and date, but thinks this is 2011. Obeys simple commands. EXTREMITIES: No edema, no erythema. LABS: WBC 9.7, hemoglobin 12.2, hematocrit 37.1, platelets 286. PT 10.5, INR 1, APTT 25.6. Sodium 139, potassium 3.9, chloride 104, bicarbonate 27, BUN 20, creatinine 0.8, serum glucose 226, calcium 8.5, magnesium 1.6, total bilirubin 0.3, AST 19, ALT 28, alkaline phosphatase 76, troponin I less than 0.015. TSH 3.5. Urinalysis positive for glucose and leukocyte esterase. Chest x-ray: Pulmonary vascular congestion. CTA of the head and neck: No acute findings. Head CT, subacute right periventricular infarct, old right internal capsule infarct, no acute intracranial hemorrhage. EKG: Normal sinus rhythm with rate of 82, no acute ST changes seen. ASSESSMENT AND PLAN: This is a 63-year-old female who presents with stroke like symptoms. 1. Stroke-like symptoms with right-sided numbness and aphasia for short period of time. CT of the head, questionable subacute right periventricular infarct. CTA of the head and neck unremarkable, stroke alert was called, but TPA was not given as the patient's symptoms improved. Symptoms started around 3:00 p.m. but aphasia happened around 6:00 in the ER. Currently, speech is back to normal .The patient is already on aspirin at home. We will add Plavix. We will give 1 dose now. We will do full stroke workup with MRI of the head and echo. CTA of the head and neck is already done.Speech evaluation, PT, OT. Neurology evaluation in a.m. We will place her on soft diet for now. The patient is on regular rate at home. 2. Diabetes. We will hold her home medication metformin and NovoLog FlexPen. We will continue Lantus 44 units at bedtime, place on diabetic diet. We will place on insulin sliding scale. Follow hemoglobin A1c levels. Monitor the blood sugars. 3. History of hypertension. Currently, blood pressure is elevated. We will allow permissive hypertension. We will continue losartan-hydrochlorothiazide and coreg at home. The patient does not check her blood pressure at home. We will place her on nitro paste 0.5 inch q. 6 hours and IV labetalol p.r.n., and closely monitor blood pressure. We want to keep the blood pressure below 200 in range of 160 to 200. Closely monitor on tele floor. 4. History of previous stroke on aspirin and statin. We will follow lipid profile. 5. Morbid obesity, need counseling. 6. Hypomagnesemia, continue magnesium supplement. Follow the labs in a.m. 7. Hyperlipidemia on statin. Follow the lipid profile. 8. History of insomnia on trazodone at bedtime. 9. Osteoarthritis of the hip. Monitor for any pain. 10. Deep venous thrombosis prophylaxis, sequential compression devices for now. 11. Disposition: Closely monitor in the tele floor. Level 1 full code only if there is a chance of recovery. MTDD
[2019-02-19] MEDS ORDERED: GLUCOSE 10 TABS/TUBE PO PRN (22:15)
[2019-02-19] MEDS ORDERED: CARBOHYDRATES FOR HYPOGLYCEMIA PO PRN (22:15)
[2019-02-19] MEDS ORDERED: GLUCAGON FOR INJ 1 MG VIAL SQ PRN (22:15)
[2019-02-19] MEDS ORDERED: DEXTROSE 50% 50 ML SYRINGE IV PRN (22:15)
[2019-02-19] MEDS ORDERED: GLUCOSE 40% GEL 15 GM TUBE PO PRN (22:15)
[2019-02-19] MEDS: NITROGLYCERIN 2% OINTMENT 30GM TUBE EXT SCH (23:22)
[2019-02-19] MEDS: INSULIN ASPART 100 UNITS/ML 3 ML PEN SC SCH (23:27)
[2019-02-19] MEDS: POTASSIUM CHLORIDE 10 MEQ TABCR PO SCH (23:40)
[2019-02-20] MEDS ORDERED: GADOBUTROL 65ML VIAL IV PRN (05:16)
[2019-02-20] MEDS: NITROGLYCERIN 2% OINTMENT 30GM TUBE EXT SCH (05:18)
[2019-02-20] MEDS ORDERED: FUROSEMIDE 40 MG in SYRINGE 0 ML IV ONE (06:06)
[2019-02-20] MEDS ORDERED: XOPENEX/ATROVENT 1.25mg/0.5MG NEB COMBO NEB STA (06:07)
[2019-02-20] MEDS ORDERED: IPRATROPIUM BROMIDE NEB SOLN 0.02% 2.5 ML VIAL INH STA (06:09)
[2019-02-20] MEDS ORDERED: LEVALBUTEROL 1.25MG/0.5ML NEB INH STA (06:09)
--- NOTE | 2019-02-20 06:22 | Hospitalist Progress Note ---
Date of Service February 20, 2019 Subjective Stroke alert called around 6 AM. Patient noted to be aphasic as per RN. Not talking at all. SBP 130s as per RN Patient somewhat tachypneic as per RN. CT head: 645A No intra or extra-axial mass lesions are visualized. There is no CT evidence of acute cortical infarction. There is no evidence of midline shift. There is no acute hemorrhage. No calvarial fractures are visualized. There are patchy white matter hypodensities likely on a small vessel basis. Ther e are old right basal ganglia, external capsule lacunar infarcts. There is equivocal visualization of the punctate left pontine infarct identified on the MRI performed earlier in the day There is no evidence of pathologic ventricular dilatation. There is no evidence of acute sinusitis IMPRESSION: No significant change from the prior study. No acute findings. No evidence of acute hemorrhage. MRI brain: 441A 1. Question a punctate focus of restricted diffusion in the left aspect of the kandice. A tiny acute to subacute acute infarct is not excluded. 2. No additional foci of restricted diffusion are identified. 3. There is no hemorrhage or mass effect. 4. Chronic changes as detailed above. Patient transferred to ICU for stroke alert as per hospital protocol. SBP currently 190s. Patient still not talking. Case discussed with [facility] [place] telestroke neurologist, Dr. Smith. Possible pontine infarct cannot explain patient's "aphasia" symptoms (mutism) as per neurologist. Patient's symptoms possibly due to anxiety after evaluating her at the stroke alert upon arrival at the ER last night. TPA not recommended. He recommends BP control, anxiolytic if deemed necessary. He is okay with adding Plavix to patient's aspirin for secondary stroke prevention with possible subacute L pontine infarct on earlier MRI report. Patient to return to PCU bed. Will relay developments to AM provider. Results & Data Vital Signs (Past 12 Hours) Vital Signs Temp Pulse Pulse Pulse Resp BP BP 02/20/19 02:52 36.7 C 68 22 186/83 H 02/19/19 23:59 77 02/19/19 22:53 36.9 C 73 18 183/78 H 02/19/19 22:04 02/19/19 21:50 36.5 C 67 72 18 193/101 H 02/19/19 21:37 72 22 175/94 H 02/19/19 20:57 71 22 220/93 H 02/19/19 20:30 64 22 179/95 H 02/19/19 20:21 72 20 218/90 H 02/19/19 20:02 70 22 195/100 H 02/19/19 19:31 67 15 177/92 H 02/19/19 19:23 72 26 H 185/108 H 02/19/19 19:16 74 22 223/101 H 02/19/19 19:02 80 22 201/98 H 02/19/19 18:56 86 17 186/74 H 02/19/19 18:30 36.9 C 72 16 210/131 H Pulse Ox Pulse Ox 02/20/19 02:52 94 02/19/19 23:59 02/19/19 22:53 94 02/19/19 22:04 95 02/19/19 21:50 95 02/19/19 21:37 94 02/19/19 20:57 94 02/19/19 20:30 94 02/19/19 20:21 94 02/19/19 20:02 94 02/19/19 19:31 96 02/19/19 19:23 94 02/19/19 19:16 94 02/19/19 19:02 93 02/19/19 18:56 93 02/19/19 18:30 96
--- NOTE | 2019-02-20 06:30 | XRay Report ---
XR chest 1V portable CLINICAL HISTORY: sob COMPARISON STUDY: February 19, 2019 FINDINGS: The cardiac and mediastinal contours remain stable. There is borderline elevation right hem idiaphragm. There is continued radiographic evidence of mild pulmonary vascular congestion/fluid over load. There is no lobar consolidation. There are no significant pleural effusions[ IMPRESSION: Mild elevation of the interstitium, a finding likely secondary to mild pulmonary vascular congestion/fluid overload. Electronically signed by: Boyd Franklin M.D. 02/20/2019 6:29 AM
--- NOTE | 2019-02-20 06:49 | CT Scan Report ---
CT head/brain wo con CLINICAL HISTORY: aphasia COMPARISON STUDY: MRI dated 02/20/2019, CT scan dated 02/19/2019 TECHNIQUE: Axial CT of the brain is performed from the vertex to the skull base. IV contrast was not administered for this examination. A dose lowering technique was utilized adhering to the principles of ALARA. CT DOSE: 687.98 mGy.cm FINDINGS: No intra or extra-axial mass lesions are visualized. There is no CT evidence of acute cortical infarc tion. There is no evidence of midline shift. There is no acute hemorrhage. No calvarial fractures ar e visualized. There are patchy white matter hypodensities likely on a small vessel basis. There are old right basal ganglia, external capsule lacunar infarcts. There is equivocal visualization of the punctate left po ntine infarct identified on the MRI performed earlier in the day There is no evidence of pathologic ventricular dilatation. There is no evidence of acute sinusitis IMPRESSION: No significant change from the prior study. No acute findings. No evidence of acute hemor rhage. Electronically signed by: Boyd Franklin M.D. 02/20/2019 6:47 AM
[2019-02-20 07:00] LABS: Basophils # (auto) 0.02 K/uL (0-0.2); Basophils % (auto) 0.3 %; Eosinophils # (auto) 0.18 K/uL (0-0.5); Eosinophils % (auto) 2.4 %; Hematocrit (blood only) 33.7 % (37-47); Hemoglobin 11.2 g/dL (12.0-16.0); Immature Granulocytes # (auto) 0.01 K/uL (0.00-0.02); Immature Granulocytes % (auto) 0.1 %; Lymphocytes # (auto) 1.85 K/uL (1.2-3.4); Lymphocytes % (auto) 24.4 %; Mean Corpuscular Hgb Conc 33.2 g/dL (32-36); Mean Corpuscular Volume 79.7 fL (80-100); Mean Platelet Volume 9.3 fL (7.4-10.4); Monocytes # (auto) 0.52 K/uL (0.11-0.59); Monocytes % (auto) 6.9 %; Neutrophils # (auto) 4.99 K/uL (1.4-6.5); Neutrophils % (auto) 65.9 %; Platelet Count 266 K/uL (130-400); RDW Coefficient of Variation 14.9 % (11.5-14.5); RDW Standard Deviation 43.1 fL (36.4-46.3); Red Blood Count 4.23 M/uL (4.2-5.4); White Blood Count 7.57 K/uL (4.8-10.8)
--- NOTE | 2019-02-20 07:08 | Ultrasound Report ---
BILATERAL CAROTID DOPPLER STUDY HISTORY: Mental status change. Stroke symptoms. COMPARISON: Neck CTA 02/19/2019. TECHNIQUE: Real-time, grayscale, and color Doppler sonography of the carotid arteries was performed. Imaging reviewed in the transverse and longitudinal planes. All measurements were calculated based on NASCET criteria. FINDINGS: Antegrade flow is seen in the bilateral vertebral arteries. The brachial pressures are hemodynamically similar but elevated measuring up to 206/89. Mild calcified plaque within the right carotid bulb. The peak systolic velocity within the right ICA is 65 cm/s. The right systolic ratio is 1. The peak systolic velocity within the left ICA is 81 cm/s. The left systolic ratio is 1.2. IMPRESSION: No hemodynamically significant stenosis seen within the carotid arteries. Hypertension. Electronically signed by: Fritz Shipman M.D. 02/20/2019 7:06 AM
--- NOTE | 2019-02-20 07:11 | Magnetic Resonance Report ---
MRI OF THE BRAIN COMBO CLINICAL HISTORY: Strokelike symptoms. COMPARISON STUDY: CT of the brain dated 02/19/2019. TECHNIQUE: MRI of the brain was performed utilizing various T1 and T2-weighted sequences in the axial , sagittal, and coronal planes. Contrast-enhanced sequences were acquired following the administratio n of 10.9 cc of Gadavist. FINDINGS: Brain parenchyma: There is age-related involutional change noting moderate confluent subcortical and periventricular microangiopathic disease. There is no hemorrhage or mass effect. Chronic lacunar infa rcts identified within the right basal ganglia and the right-sided periventricular white matter. Ques tion a punctate focus of restricted diffusion identified in the left aspect of the kandice on image #7. No additional foci of restricted diffusion are seen. No enhancing mass lesion is identified on the po stcontrast images. Wallerian degeneration is noted in the right aspect of the kandice. Lynne-white matter differentiation is preserved. No extra-axial fluid collection is seen. The cerebellar tonsils are no rmal in configuration. Ventricles, sulci, and cisterns: Prominent secondary to involutional change. Pituitary and sella: Partially empty sella is incidentally noted. Intracranial vasculature: Normal flow voids are maintained at the skull base. Orbits: The bony orbits are grossly intact. Orbital contents are normal in appearance, noting bilater al ocular lens implants. Sinuses and mastoids: There is trace mucosal thickening within the left maxillary antrum and the ethm oid sinuses. The remaining paranasal sinuses and the mastoid air cells are clear. Calvarium: Unremarkable. Cervical cord: Partially visualized cervical spinal cord is normal in morphology and signal intensity . IMPRESSION: 1. Question a punctate focus of restricted diffusion in the left aspect of the kandice. A tiny acute to subacute acute infarct is not excluded. 2. No additional foci of restricted diffusion are identified. 3. There is no hemorrhage or mass effect. 4. Chronic changes as detailed above. Electronically signed by: Sorin Munguia M.D. 02/20/2019 7:09 AM
[2019-02-20] MEDS ORDERED: CLOPIDOGREL BISULFATE 75 MG TAB PO ONE (07:30)
[2019-02-20] MEDS ORDERED: FUROSEMIDE 20 MG in SYRINGE 0 ML IV ONE (07:30)
[2019-02-20 07:37] LABS: Calcium 8.7 mg/dl (8.5-10.1); Creatinine Clr Calc Pharmacy 106.6 ml/min; Est GFR (African American) 110.8; Est GFR (Non-African American) 95.6; Potassium 3.6 mmol/L (3.5-5.1)
[2019-02-20] MEDS ORDERED: HydrALAZINE HCL 20 MG/ML VIAL IV PRN ×2 (07:53→09:50)
[2019-02-20 07:58] LABS: Estimated Average Glucose 206 mg/dl; Hemoglobin A1C 8.8 % (4.5-5.6)
[2019-02-20] MEDS ORDERED: CARVEDILOL 3.125 MG TAB PO SCH (09:00)
[2019-02-20] MEDS ORDERED: CYANOCOBALAMIN 500 MCG TABLET (VITAMIN B-12) PO SCH (09:00)
[2019-02-20] MEDS ORDERED: FUROSEMIDE 20 MG TAB PO SCH (09:00)
[2019-02-20] MEDS ORDERED: ROSUVASTATIN CALCIUM 20 MG TAB PO SCH (09:00)
[2019-02-20] MEDS ORDERED: LOSARTAN/HCTZ 50/12.5MG TAB PO SCH (09:00)
[2019-02-20] MEDS ORDERED: ASPIRIN 81 MG ECTAB PO SCH (09:00)
--- NOTE | 2019-02-20 09:27 | Hospitalist Progress Note ---
Date of Service February 20, 2019 Assessment & Plan (1) Expressive aphasia: (2) CVA (cerebral vascular accident): Patient came in with right facial numbness followed by expressive aphasia which resolved after few hours. CT head on admission showed subacute right periventricular infarct. CTA head/neckno stenosis. MRI brain AT 4:41 AM showed tiny acute to subacute infarct not excluded, question of punctate focus of restricted diffusion in left aspect of kandice. Around 6 AM she again became aphasic (expressive) and continues to be so. Stroke alert was called. Was evaluated in ICU, tx to floor. CT head repeated- No new change. On my evaluation, continues to have expressive aphasia, anxious and frustrated as unable to talk, able to comprehend. NIH scale score up to 7 from 2 -Likely Acute Stroke -Initially on admission was evaluated during stroke alert- Tele Neuro did not recommend TPA as symptoms had resolved, anxiety + - thought this was secondary to HTN emergency -Now out of TPA window -Will give ASA 300 mg suppository. Will add Plavix to ASA once able to tolerate PO. On crestor 20 mg at home -Stroke protocol- Dysphagia screening, NPO, PT/OT, Speech therapy -Work up- MRI brain, CT head, CTA head/neck done so far as above. Echo pending, Lipid panel - LDL -52; hba1c -8.8 -Discussed case with Neurologist over phone. (3) Hypertensive emergency: Presented with BP in 200s on admission Home regimen: Coreg 12.5 mg twice daily, losartan hydrochlorothiazide daily Received IV labetalol 10 mg, Coreg 12.5 mg Blood pressures down to 173/97 -IV Lopressor 2.5 mg q 6 hours with holding parameters as unable to tolerate PO meds -IV hydralazine PRN for SBP more than 180s and DBP more than 110 ordered -Permissive hypertension (4) Diabetes mellitus: Uncontrolled with HBA1C 8.8 Home regimen: Insulin Lantus 44 units nightly, insulin NovoLog 10 units AC at bedtime -Continue with Insuline Lantus 44 units now, ISS (NPO status), hold Novolog, ISS -Monitor (5) Anxiety: -On trazodone at home NUTRITION Hold PO meds till dysphagia screening completed. We will continue with aspirin 300 mg suppository daily until able to tolerate p.o. IV Lopressor 2.5 mg every 6 hours scheduled DVT prophylaxis Heparin SQ DISPOSITION Continue with PCU monitoring Monitor closely Subjective Patient came in with right facial numbness starting 3 PM on day of admission, found to be non verbal in ED. Stroke alert was called. After CT scan she did become verbal again. Did fine till approx 6 AM when she again became nonverbal, expressive aphasia. Stroke alert was called again. Repeat CT scan shows no new changes. On my evaluation, patient is crying and very emotional as she is not able to express herself. She is able to comprehend and follow all commands. Physical Exam Physical Exam: GENERAL-awake, alert, expressive aphasia. Patient is very emotional and crying as she is not able to talk. She is able to comprehend and follow commands. OBESE+ HEAD- Atraumatic, Normocephalic EYES- No pallor, icterus, redness, discharge. Pupils are equal, round, reactive to light and accomodation; LEFT EYE-- Slight droop EARS- Normal pinna, no discharge, tenderness noted NOSE- No nasal discharge noted NECK- Supple, no JVD LUNGS- Air entry bilaterally equal. No rales, rhonchi, crackles, wheezes heard. HEART- Regular rate and rhythm. No murmurs ABDOMEN- Soft, non tender, non distended, Bowel sounds heard. EXTREMITIES- Good peripheral pulses, no edema NEUROMUSCULAR-awake, alert, expressive aphasia. Patient is very emotional and crying as she is not able to talk. She is able to comprehend and follow commands. Cranial nerves intact. Left extremities 4/5 power, right extremities 5/5. No sensory deficits. Results & Data Vital Signs (Past 12 Hours) Vital Signs Temp Pulse Pulse Pulse Resp BP BP 02/20/19 06:07 36.7 C 104 H 173/97 H 02/20/19 02:52 36.7 C 68 22 186/83 H 02/19/19 23:59 77 02/19/19 22:53 36.9 C 73 18 183/78 H 02/19/19 22:04 02/19/19 21:50 36.5 C 67 72 18 193/101 H 02/19/19 21:37 72 22 175/94 H Pulse Ox Pulse Ox 02/20/19 06:07 92 02/20/19 02:52 94 02/19/19 23:59 02/19/19 22:53 94 02/19/19 22:04 95 02/19/19 21:50 95 02/19/19 21:37 94
[2019-02-20] MEDS ORDERED: ASPIRIN 300 MG SUPP PR ONE (10:00)
[2019-02-20] MEDS ORDERED: PERFLUTREN LIPID MICROSPHERE (DEFINITY) IV ONE (10:27)
[2019-02-20] MEDS: INSULIN ASPART 100 UNITS/ML 3 ML PEN SC SCH ×3 (10:57→18:27)
[2019-02-20] MEDS: POTASSIUM CHLORIDE 10 MEQ TABCR PO SCH (11:19)
[2019-02-20] MEDS: MAGNESIUM OXIDE 400 MG TAB PO SCH (11:19)
[2019-02-20] MEDS: PANTOprazole 40 MG TAB PO SCH (11:19)
[2019-02-20] MEDS ORDERED: METOPROLOL TARTRATE 1 MG/ML VIAL IV SCH (12:00)
[2019-02-20 12:07] LABS: Appearance Urine Clear (Clear); Bacteria Urine Automated 1+ (Negative); Bilirubin Urine Negative (Negative); Blood Urine Negative (Negative); Color Urine Yellow; Glucose Urine UA Negative (Negative); Ketones Urine Negative (Negative); Leukocyte Esterase Urine 1+ (Negative); Nitrite Urine Negative (Negative); Protein Urine Negative (Negative); RBC Urine Automated 0-4 /hpf (0-4); Specific Gravity Urine 1.017 (1.000-1.030); Urobilinogen Urine Negative (Negative)
[2019-02-20] MEDS ORDERED: Nursing to Pharmacy Communication ONE (14:15)
[2019-02-20] MEDS: cefTRIAXone SODIUM 2,000 MG in DEXTROSE 5% 50 ML IV SCH (16:15)
--- NOTE | 2019-02-20 17:13 | Neurology Consultation ---
Date of Consultation February 20, 2019 Assessment & Plan (1) Expressive aphasia: 1. MRI small punctate left aspect of kandice 2. CTA head/neck -no signficant stenosis 3. CXR pulmonary vascular congestion 4. TTE no ASD 5. aspirin 81 mg and plavix 75 mg given 6. UTI - ceftriaxone given 7. optimize HTN, HLD, DM LDL <70 -after 24 hours 8. repeat MRI brain -ordered to r/o further stroke event 9. PT/OT speech for discharge needs further recommendations to follow Supervising Physician Co-Signing Physician Notes I have seen and discussed above patient with Dr Keli Orozco, neurology. Pt seen and examined. Discussed with Faviola, nursing and Dr Violetta Zaman. 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 During day yesterday developed facial numbness and difficulty with speech. This has waxed and waned. It had resolved in ER, with apparently no new neurologic deficits but approx 6 am today, after returning from MRI which showed a small acute L pontine infarct, the pt was noted to be alert, but essentially mute with genl weakness. Stroke alert called for second time , CT head repeated, poss L pontine hypodensity. Stroke neuro who had been called on initial presentation (did not rec TPA) and did not feel pt needed TPA. I have not been able to review the recs for the second call. Repeat MRI this evening shows a larger acute L pontine infarct. Good flow voids in the basilar and verts. CTA of head and neck yesterday show no high grade occlusion or stenosis. Pt has been hypertensive. Pt is awake, alert. Able to correctly pick answers to orientation by shaking head yes/no. Respirations are occasionally blowing, moreso R face than left. Pupils post surg,mid position and reactive. No gaze pref, nml EOM, no nystagmus. Bifacial weakness R>L, decreased corneals, decreased gag bl. UE bl weak, best 3/5, bl LE approx same, rle less than antigrav. Intact bl touch. Dystaxic bl UE, unable to perform in LE. UE symm, increased L knee jerk, present AJ, bl upgoing toes. Imp progression of L pontine infarct, in distribution of paramedian pontine artery. There is no large vessel occlusion, stenosis or thrombus. Bl symptomatology appears to be from baseline weakness on left due to prior stroke P. Gradual reduction of bp. Dr Zaman and I discussed volume expansion, but have elected not due to vascular congestion seen on CXR. Antiplt tx with rectal asa. When available to take PO, dual antiplt tx with asa and Plavix, statin Treatment of hyperglycemia. Monitor management of secretions, respiration, intubation if needed. DVT prophylaxis. KRISTY Orozco MD History of Present Illness Reason for Consultation: aphasia Requesting Physician: Violetta Zaman MD Attending Physician: Violetta Zaman History of Present Illness Griselda is a 63 year old female with PMH DM, hypomagnesemia, history of CVA, history of left-sided weakness about 8-9 years ago, HTN, morbid obesity, osteoarthritis of hip, depression, primary insomnia, presents with stroke-like symptoms. Yesterday she went outside with her dog when she suddenly felt numbness in the right side of the face. She called her sister and EMS was called in and she was brought into the hospital and on the way she had a brief episode of difficulty speaking. Then around 6 p.m. she suddenly became aphasic, stroke alert was called and by the time she went to CAT scan and came back, her speech came back to normal. CT of the head showed subacute right periventricular infarct, old right internal capsule infarct, no acute intracranial hemorrhage. CTA of the head and neck were unremarkable. Her symptoms improved and no tPa was ordered. During the episode, she had some shortness of breath. She has some weakness left side from her previous stroke, but ambulates okay. Currently she is unable to speech when asked to answer questions there is no vocal sound. She becomes tearful when ask to try to speak. denies CP, SOB, abdominal pain, increased one sided weakness, numbness tingling, vision changes, double vision. she does take aspirin 81 mg at home since her previous stroke. Allergies Allergy/AdvReac Type Severity Reaction Status Date / Time No Known Allergies Allergy Unverified 02/19/19 20:08 Home Medications Home Medications Medication Instructions Recorded Confirmed Type aspirin [Aspir-81] 81 mg PO DAILY 02/19/19 02/19/19 History baclofen 20 mg PO BID 02/19/19 02/19/19 History carvedilol 12.5 mg PO BID 02/19/19 02/19/19 History cyanocobalamin (vitamin B-12) 1,000 mcg PO DAILY 02/19/19 02/19/19 History diclofenac sodium 75 mg PO BID 02/19/19 02/19/19 History furosemide 20 mg PO DAILY 02/19/19 02/19/19 History insulin aspart U-100 [Novolog 10 unit SUBCUT AC 02/19/19 02/19/19 History Flexpen U-100 Insulin] insulin glargine [Basaglar KwikPen 44 unit SUBCUT HS 02/19/19 02/19/19 History U-100 Insulin] losartan-hydrochlorothiazide 1 tab PO DAILY 02/19/19 02/19/19 History magnesium oxide 400 mg PO DAILY 02/19/19 02/19/19 History metformin 1,000 mg PO BID 02/19/19 02/19/19 History omeprazole 20 mg PO DAILY 02/19/19 02/19/19 History potassium chloride 10 meq PO BID 02/19/19 02/19/19 History rosuvastatin 20 mg PO DAILY 02/19/19 02/19/19 History trazodone 50 mg PO HS 02/19/19 02/19/19 History Patient History Medical History CVA (cerebral vascular accident) Diabetes HLD (hyperlipidemia) Hypertension Family History Other Family history non-contributory Social History Preferred Language: Bhutanese Communication Ability: Effective 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 Beliefs That Will Affect Care: None marital status: Single Current Living Situation: Alone Current Living Situation Comment: Patient states she lived alone at home with her dog Other Information That Helps Us Care for You: No Feels Safe at Home: Yes Safety Concerns: Feels Safe At This Time Smoking Status: Former smoker Do You Dip or Chew Tobacco: No Second Hand Exposure: No Tobacco Cessation Education Requested by Patient: No Hx Alcohol Use: No Hx Substance Use: No Physical Exam Physical Exam: Physical Exam: Constitutional: appearance morbidly obese Ears, Nose, Mouth and Throat: mucous membranes moist, no injection and skin normal, eyes normal Cardiovascular: normal S-1 and S-2 and regular rate and rhythm Respiratory: course breath sounds, audible wheezing with inspiration Musculoskeletal: peripheral edema distant distal pulses Skin: no stigmata of neurocutaneous disease noted and normal and intact Eyes: extraocular muscles intact (EOMI) and pupils equal, round and reactive to light (PERRL) NEUROLOGIC EXAMINATION: Mental status: Alert and interactive unable to project audible sounds Oriented to person Cranial Nerves flattening of left nasolabial fold Sensory: intact to light and cool touch Coordination: unable to do finger to nose or heel to [place] Gait/Stance: Posture lying in bed Motor: able to lift hand in air Strength: biceps triceps 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, left 4/5, left hip flex 4+/5, right 4+/5 Results & Data Vital Signs (Past 12 Hours) Vital Signs Temp Pulse Pulse Resp BP BP Pulse Ox 02/20/19 16:00 36.6 C 71 84 23 209/93 H 94 02/20/19 13:00 69 175/94 H 02/20/19 11:15 37.2 C 84 22 180/78 H 91 02/20/19 08:00 69 02/20/19 06:07 36.7 C 104 H 173/97 H 92 Laboratory Results Abnormal lab results 02/19/19 02/19/19 02/19/19 Range/Units 18:28 18:38 18:38 Hgb (12.0-16.0) g/dL POC Hgb (12.0-16.0) g/dl Hct (37-47) % POC Hct (37-47) % MCV 79.6 L (80-100) fL RDW Coeff of [place] 14.8 H (11.5-14.5) % Immature Gran # (Auto) 0.04 H (0.00-0.02) K/uL Neut # (Auto) 6.71 H (1.4-6.5) K/uL POC Anion Gap (16-25) mmol/L POC BUN (7-18) mg/dl BUN 20 H (7-18) mg/dl BUN/Creatinine Ratio 24.6 H (10-20) Glucose 226 H (70-99) mg/dl POC Glucose 223 H (70-99) POC Glucose (other) (70-99) mg/dl Hemoglobin A1c (4.5-5.6) % POC Ioniz Calcium Ning (1.12-1.32) mmol/l Magnesium 1.6 L (1.8-2.4) mg/dl Triglycerides (0-150) mg/dl Ur Specific [place] (1.000-1.030) Urine Glucose (UA) (Negative) Ur Leukocyte Esterase (Negative) Urine WBC (Auto) (0-5) /hpf U Epithel Cells (Auto) (0-5) /lpf Urine Bacteria (Auto) (Negative) 02/19/19 02/19/19 02/19/19 Range/Units 18:44 20:21 21:44 Hgb (12.0-16.0) g/dL POC Hgb 11.9 L (12.0-16.0) g/dl Hct (37-47) % POC Hct 35 L (37-47) % MCV (80-100) fL RDW Coeff of [place] (11.5-14.5) % Immature Gran # (Auto) (0.00-0.02) K/uL Neut # (Auto) (1.4-6.5) K/uL POC Anion Gap 13.0 L (16-25) mmol/L POC BUN 22 H (7-18) mg/dl BUN (7-18) mg/dl BUN/Creatinine Ratio (10-20) Glucose (70-99) mg/dl POC Glucose 268 H (70-99) POC Glucose (other) 233 H (70-99) mg/dl Hemoglobin A1c (4.5-5.6) % POC Ioniz Calcium Ning 1.08 L (1.12-1.32) mmol/l Magnesium (1.8-2.4) mg/dl Triglycerides (0-150) mg/dl Ur Specific [place] > 1.045 H (1.000-1.030) Urine Glucose (UA) 2+ H (Negative) Ur Leukocyte Esterase 1+ H (Negative) Urine WBC (Auto) 10-30 H (0-5) /hpf U Epithel Cells (Auto) >30 H (0-5) /lpf Urine Bacteria (Auto) 1+ H (Negative) 02/20/19 02/20/19 02/20/19 Range/Units 06:03 06:52 06:52 Hgb 11.2 L (12.0-16.0) g/dL POC Hgb (12.0-16.0) g/dl Hct 33.7 L (37-47) % POC Hct (37-47) % MCV 79.7 L (80-100) fL RDW Coeff of [place] 14.9 H (11.5-14.5) % Immature Gran # (Auto) (0.00-0.02) K/uL Neut # (Auto) (1.4-6.5) K/uL POC Anion Gap (16-25) mmol/L POC BUN (7-18) mg/dl BUN (7-18) mg/dl BUN/Creatinine Ratio (10-20) Glucose 203 H (70-99) mg/dl POC Glucose 188 H (70-99) POC Glucose (other) (70-99) mg/dl Hemoglobin A1c (4.5-5.6) % POC Ioniz Calcium Ning (1.12-1.32) mmol/l Magnesium (1.8-2.4) mg/dl Triglycerides 219 H (0-150) mg/dl Ur Specific [place] (1.000-1.030) Urine Glucose (UA) (Negative) Ur Leukocyte Esterase (Negative) Urine WBC (Auto) (0-5) /hpf U Epithel Cells (Auto) (0-5) /lpf Urine Bacteria (Auto) (Negative) 02/20/19 02/20/19 02/20/19 Range/Units 06:52 08:04 11:19 Hgb (12.0-16.0) g/dL POC Hgb (12.0-16.0) g/dl Hct (37-47) % POC Hct (37-47) % MCV (80-100) fL RDW Coeff of [place] (11.5-14.5) % Immature Gran # (Auto) (0.00-0.02) K/uL Neut # (Auto) (1.4-6.5) K/uL POC Anion Gap (16-25) mmol/L POC BUN (7-18) mg/dl BUN (7-18) mg/dl BUN/Creatinine Ratio (10-20) Glucose (70-99) mg/dl POC Glucose 222 H 220 H (70-99) POC Glucose (other) (70-99) mg/dl Hemoglobin A1c 8.8 H (4.5-5.6) % POC Ioniz Calcium Ning (1.12-1.32) mmol/l Magnesium (1.8-2.4) mg/dl Triglycerides (0-150) mg/dl Ur Specific [place] (1.000-1.030) Urine Glucose (UA) (Negative) Ur Leukocyte Esterase (Negative) Urine WBC (Auto) (0-5) /hpf U Epithel Cells (Auto) (0-5) /lpf Urine Bacteria (Auto) (Negative) 02/20/19 Range/Units 11:52 Hgb (12.0-16.0) g/dL POC Hgb (12.0-16.0) g/dl Hct (37-47) % POC Hct (37-47) % MCV (80-100) fL RDW Coeff of [place] (11.5-14.5) % Immature Gran # (Auto) (0.00-0.02) K/uL Neut # (Auto) (1.4-6.5) K/uL POC Anion Gap (16-25) mmol/L POC BUN (7-18) mg/dl BUN (7-18) mg/dl BUN/Creatinine Ratio (10-20) Glucose (70-99) mg/dl POC Glucose (70-99) POC Glucose (other) (70-99) mg/dl Hemoglobin A1c (4.5-5.6) % POC Ioniz Calcium Ning (1.12-1.32) mmol/l Magnesium (1.8-2.4) mg/dl Triglycerides (0-150) mg/dl Ur Specific [place] (1.000-1.030) Urine Glucose (UA) (Negative) Ur Leukocyte Esterase 1+ H (Negative) Urine WBC (Auto) 5-10 H (0-5) /hpf U Epithel Cells (Auto) 10-20 H (0-5) /lpf Urine Bacteria (Auto) 1+ H (Negative) Diagnostic Findings CT head- Subacute right periventricular infarct. 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 No acute intracranial hemorrhage. CTA head-No significant stenosis, occlusion, or aneurysm within the [place] of [place]. CTA neck-No significant stenosis, occlusion, or dissection identified within the carotid or vertebral arteries. CXR-Pulmonary vascular congestion. carotid doppler-No hemodynamically significant stenosis seen within the carotid arteries. Hypertension. MRI brain- Question a punctate focus of restricted diffusion in the left aspect of the kandice. A tiny acute to subacute acute infarct is not excluded. No additional foci of restricted diffusion are identified. There is no hemorrhage or mass effect. Chronic changes as detailed above. CXR-Mild elevation of the interstitium, a finding likely secondary to mild pulmonary vascular congestion/fluid overload. CT head-No significant change from the prior study. No acute findings. No evidence of acute hemorrhage. TTE- EF 60-65% no ASD
[2019-02-20] MEDS ORDERED: POTASSIUM CHLORIDE 10 MEQ in SODIUM CHLORIDE 0.9% 1000ML 1,000 ML IV SCH (17:30)
--- NOTE | 2019-02-20 18:16 | Magnetic Resonance Report ---
MR brain wo con HISTORY: Stroke stroke evaluation increased symptoms TECHNIQUE: Multiplanar multisequence MRI of the brain was performed without the use of contrast. COMPARISON STUDY: 02/20/2019 4:46 AM FINDINGS: Increased prominence of an acute ischemic event involving the left central kandice. It current ly measures 11 x 7 mm. Findings of chronic periventricular and chronic small vessel ischemic change are again noted. The amadou tricular system is midline. There are findings of mild age-related cerebral atrophy. IMPRESSION: 1. Increased size of an acute infarct left central kandice. 2. This currently measures 11 x 7 mm and has increased from a prior measurement of 3 mm. 3. All additional findings are unchanged compared to the prior study with no additional acute process . The above report was generated using voice recognition software. It may contain grammatical, syntax or spelling errors. Electronically signed by: Fercho Hernandez M.D. 02/20/2019 6:14 PM
[2019-02-20] MEDS: METOPROLOL TARTRATE 1 MG/ML VIAL IV SCH (18:26)
[2019-02-20] MEDS ORDERED: POTASSIUM CHLORIDE / WTR 10 MEQ/100 ML PLCT IV ONE (19:25)
[2019-02-20] MEDS ORDERED: PHARMACY GLYCEMIC MGMT CONSULT PRN (19:37)
--- NOTE | 2019-02-20 20:14 | Critical Care Consultation ---
Date of Consultation February 20, 2019 Assessment & Plan (1) Diabetes mellitus: pharmacy consult for glycemic control. Would DC her long acting insulin and use an insulin sliding scale to cover her (2) CVA (cerebral vascular accident): plavix 75 mg via NG in am aspirin 300 mg Per rectum and we can change to 160 PNG LDL at goal of 57 would continue home dose of crestor Would repeat CT scan in 24 hours or earlier if change in symptoms Present on Admission?: Yes (3) Hypertensive emergency: nicardipine drip to maintain SBP 140-160 (4) Admitted to intensive care unit: 63 yo female with h/o DM HTN and prior storkes admitted with brainstem infarct and she is out of TPA window symptoms evolving with aphasia and R sided weakness. Also she is in hypertensive emergency and it is controlled by nicardipine neuro nicardipine as above neurochecks Q1hr OT/PT consult plavix and ASA as above respiratory so far her ABG and respiratory status are stable. I discussed with her the possibility of placing her on MV for airway protection and she was hesitant but agreed if it is life saving CV HTive urgency control with nicardipine continue with crestor renal replete K FU lytes and replete DM pharmacy consult for glycemic control would prefer to be a little on the hyperglycemic side rather than <100 SCCM recommendation DVT prophylaxis SCD Patient is critically ill and will be monitored in MICU CCTime is 65 minutes History of Present Illness Reason for Consultation: Hypertensive emergency and evolving Brainstem infarct Requesting Physician: Violetta COYLE Attending Physician: Violetta Coyle History of Present Illness 63 yo female patient reported to have PMH of DM2, HTN and controlled Hyperli pidemia, depression, morbid obesity, primary insomnia and osteoarthritis with h/o stroke with residual left sided weakness several years ago. The patient was reportedly walking her dog yesterday when she felt numbness in her right hemiface and called family members who called EMS. SHe was brought to ED and at about 6 pm she became aphasic and had a CTA of the head at about 18:31 on 02/19/19 There was no vascular abnormalities reported.but the parenchyma suggested subacute right periventricular infarct and old right internal capsule infarct. Neck CTA showed no carotid occlusion or dissection. Her symptoms improved and no TPA was given. She was intermittantly having difficulty to speak and emotional. She had been on aspirin and crestor from before and her LDL was 57. The patient was investigated with echocardiogram and caotid dopplers. Neither showed any pathology. In the early am at 4 am she got an MRI and it suggested a left kandice infarct of about 3 mm In the afternoon she became totally aphasic apparenlty and hypertensive a repeat MRI about 16:00 amd that shows enlargement of the infarct on the MRI to 11 mm or so. Patient ws brought to ICU for monitoring and management. She was able to understand me and obey commands but was not able to verbalize. What was odd is she could not push her tongue out much. She clearly had weaker Right side on the exam both RU and RLE were 4/5 motor power with pronator drift on the right. She had a droop in the right angle of the mouth. Allergies Allergy/AdvReac Type Severity Reaction Status Date / Time No Known Allergies Allergy Unverified 02/19/19 20:08 Home Medications Home Medications Medication Instructions Recorded Confirmed Type aspirin [Aspir-81] 81 mg PO DAILY 02/19/19 02/19/19 History baclofen 20 mg PO BID 02/19/19 02/19/19 History carvedilol 12.5 mg PO BID 02/19/19 02/19/19 History cyanocobalamin (vitamin B-12) 1,000 mcg PO DAILY 02/19/19 02/19/19 History diclofenac sodium 75 mg PO BID 02/19/19 02/19/19 History furosemide 20 mg PO DAILY 02/19/19 02/19/19 History insulin aspart U-100 [Novolog 10 unit SUBCUT AC 02/19/19 02/19/19 History Flexpen U-100 Insulin] insulin glargine [Basaglar KwikPen 44 unit SUBCUT HS 02/19/19 02/19/19 History U-100 Insulin] losartan-hydrochlorothiazide 1 tab PO DAILY 02/19/19 02/19/19 History magnesium oxide 400 mg PO DAILY 02/19/19 02/19/19 History metformin 1,000 mg PO BID 02/19/19 02/19/19 History omeprazole 20 mg PO DAILY 02/19/19 02/19/19 History potassium chloride 10 meq PO BID 02/19/19 02/19/19 History rosuvastatin 20 mg PO DAILY 02/19/19 02/19/19 History trazodone 50 mg PO HS 02/19/19 02/19/19 History Patient History Medical History CVA (cerebral vascular accident) Diabetes HLD (hyperlipidemia) Hypertension Family History Other Family history non-contributory Social History Preferred Language: Belarusian Communication Ability: Effective 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 Required: No Beliefs That Will Affect Care: None marital status: Single Current Living Situation: Alone Current Living Situation Comment: Patient states she lived alone at home with her dog Other Information That Helps Us Care for You: No Feels Safe at Home: Yes Safety Concerns: Feels Safe At This Time Smoking Status: Former smoker Do You Dip or Chew Tobacco: No Second Hand Exposure: No Tobacco Cessation Education Requested by Patient: No Hx Alcohol Use: No Hx Substance Use: No Review of Systems Review of Systems: Unobtainable due to cognitive status patient denied abdominal pain urinary burning shortness of breath but said she was having headache. No other complaints on 10 point ROS Physical Exam Constitutional: well developed, well nourished, + morbidly obese and + behavioral limitations aphasic Eyes: PERRL, conjunctivae normal, anicteric sclerae ENMT: external ear and nose normal, oropharynx normal Neck: trachea midline, no thyromegaly supple Respiratory: Bilateral CTA but has noisy upper airway sounds Cardiovascular: RRR, no murmur, no edema Gastrointestinal (Abdomen): normal bowel sounds, soft, nontender, no hepatosplenomegaly Musculoskeletal: no cyanosis or clubbing, extremities motor strength 5/5 Skin: no rashes, warm and dry Neurologic: motor power RUE 4/5 LUE 5/5 RLE 4/5 LLE 5/5 Results & Data Vital Signs (Past 12 Hours) Vital Signs Temp Pulse Pulse Resp BP BP Pulse Ox 02/20/19 18:31 82 22 198/111 H 94 02/20/19 18:28 85 14 205/100 H 95 02/20/19 18:26 92 H 19 202/111 H 94 02/20/19 18:19 36.5 C 98 H 26 H 197/114 H 95 02/20/19 16:00 36.6 C 71 84 23 209/93 H 94 02/20/19 13:00 69 175/94 H 02/20/19 11:15 37.2 C 84 22 180/78 H 91
[2019-02-20] MEDS ORDERED: INSULIN GLARGINE SOLOSTAR 100 UNITS/ML 3 ML PEN SQ SCH (21:00)
[2019-02-20] MEDS: HEPARIN SOD 5,000 UNIT/0.5 ML VIAL SQ SCH (22:52)
[2019-02-21] MEDS: METOPROLOL TARTRATE 1 MG/ML VIAL IV SCH ×5 (00:41→23:30)
[2019-02-21] MEDS: INSULIN ASPART 100 UNITS/ML 3 ML PEN SC SCH (00:43)
[2019-02-21] MEDS ORDERED: INSULIN ASPART 100 UNITS/ML 3 ML PEN SC SCH ×2 (04:00→08:00)
[2019-02-21 04:51] LABS: Basophils # (auto) 0.03 K/uL (0-0.2); Basophils % (auto) 0.3 %; Eosinophils # (auto) 0.05 K/uL (0-0.5); Eosinophils % (auto) 0.5 %; Hematocrit (blood only) 37.1 % (37-47); Hemoglobin 12.9 g/dL (12.0-16.0); Immature Granulocytes # (auto) 0.03 K/uL (0.00-0.02); Immature Granulocytes % (auto) 0.3 %; Lymphocytes # (auto) 1.81 K/uL (1.2-3.4); Lymphocytes % (auto) 17.6 %; Mean Corpuscular Hgb Conc 34.8 g/dL (32-36); Mean Corpuscular Volume 78.1 fL (80-100); Mean Platelet Volume 9.2 fL (7.4-10.4); Monocytes # (auto) 0.49 K/uL (0.11-0.59); Monocytes % (auto) 4.8 %; Neutrophils # (auto) 7.87 K/uL (1.4-6.5); Neutrophils % (auto) 76.5 %; Platelet Count 296 K/uL (130-400); RDW Coefficient of Variation 15.1 % (11.5-14.5); RDW Standard Deviation 42.9 fL (36.4-46.3); Red Blood Count 4.75 M/uL (4.2-5.4); White Blood Count 10.28 K/uL (4.8-10.8)
[2019-02-21 05:10] LABS: BUN Creatinine Ratio 17.4 (10-20); Calcium 8.7 mg/dl (8.5-10.1); Creatinine Clr Calc Pharmacy 106.6 ml/min; Est GFR (African American) 110.8; Est GFR (Non-African American) 95.6; Potassium 3.6 mmol/L (3.5-5.1)
[2019-02-21] MEDS: HEPARIN SOD 5,000 UNIT/0.5 ML VIAL SQ SCH ×3 (05:56→20:58)
[2019-02-21] MEDS ORDERED: ASPIRIN 81 MG ECTAB PO SCH (09:00)
[2019-02-21] MEDS ORDERED: CLOPIDOGREL BISULFATE 75 MG TAB PO SCH (09:00)
[2019-02-21] MEDS ORDERED: ASPIRIN 300 MG SUPP PR SCH (09:00)
[2019-02-21] MEDS ORDERED: PHARMACY GLYCEMIC MGMT CONSULT STA (09:06)
--- NOTE | 2019-02-21 09:10 | XRay Report ---
XR KUB/Abdomen 1 view CLINICAL HISTORY: Feeding tube placement tube position COMPARISON STUDY: No previous studies for comparison. FINDINGS: Feeding tube placed in the mid stomach. A pattern is nonobstructive. IMPRESSION: Tube placed in the mid stomach. Nonobstructive bowel pattern. The above report was generated using voice recognition software. It may contain grammatical, syntax or spelling errors. Electronically signed by: Fercho Hernandez M.D. 02/21/2019 9:08 AM
[2019-02-21] MEDS: PANTOprazole 40 MG TAB PO SCH (09:20)
[2019-02-21] MEDS ORDERED: INSULIN PROTOCOL GOAL RANGE ONE (09:29)
[2019-02-21] MEDS ORDERED: MODERATE STRESS LEVEL ONE (09:29)
[2019-02-21] MEDS ORDERED: NovoLIN-R BOLUS FROM BAG IV ONE (09:30)
[2019-02-21] MEDS ORDERED: ACETAMINOPHEN 1000 MG/100 ML IV IV ONE (09:54)
[2019-02-21] MEDS: INSULIN REGULAR 250 UNITS in SODIUM CHLORIDE 0.9% 247.5 ML IV SCH (09:55)
[2019-02-21] MEDS: AMLODIPINE BESYLATE 5 MG TAB PO SCH (09:55)
[2019-02-21] MEDS: CLOPIDOGREL BISULFATE 75 MG TAB PO SCH (09:57)
[2019-02-21] MEDS: LANSOPRAZOLE 30 MG SOLTAB NG SCH (09:57)
[2019-02-21] MEDS: ASPIRIN 81 MG CHEW NG SCH (09:57)
[2019-02-21] MEDS: MAGNESIUM OXIDE 400 MG TAB PO SCH (09:58)
[2019-02-21] MEDS ORDERED: LORazepam 2 MG/4 ML VIAL ONE (10:15)
[2019-02-21] MEDS ORDERED: LIDOCAINE 2% JELLY 5 ML TUBE ONE (10:18)
[2019-02-21] MEDS ORDERED: LORazepam 0.5 MG/1 ML VIAL IV STA (10:23)
[2019-02-21] MEDS ORDERED: ACETAMINOPHEN 1,000 MG/100 ML VIAL IV STA (10:23)
--- NOTE | 2019-02-21 10:27 | Hospitalist Progress Note ---
Date of Service February 21, 2019 Assessment & Plan (1) Acute CVA (cerebrovascular accident): 02/19/2019 : patient came in with right facial numbness followed by expressive aphasia which resolved after few hours. Stroke alert was called: [facility] did not recommend TPA -as neurological symptoms had resolved, suspicion was TIA - secondary to HTN emergency CT head on: 02/19/2019 showed subacute right periventricular infarct. CTA head/neckno stenosis. MRI brain on 02/20/2019 AT 4:41 AM showed tiny acute to subacute infarct not excluded, question of punctate focus of restricted diffusion in left aspect of kandice. 02/12/2019 around 6 AM : She developed expressive aphasia, flaccid left upper extremity weakness NIH scale score up to 7 from 2 Stroke alert was called(second time) Patient was not given TPA-as pt was thought to be of of window of the TPA treatment as per [facility] . Transferred to ICU . Repeat CT head noncontrast:02/20/2019 6:47 AM IMPRESSION: No significant change from the prior study. No acute findings. No evidence of acute hemorrhage. severe dysphagia noted -pt was ASA 300 mg NC x1 Patient is started with aspirin/Plavix via NG tube-for secondary prophylaxis statin will be continued LDL at goal 57 MRI of brain: 02/12/2019 at 7:09 AM IMPRESSION: 1. Question a punctate focus of restricted diffusion in the left aspect of the kandice. A tiny acute to subacute acute infarct is not excluded. 2. No additional foci of restricted diffusion are identified. 3. There is no hemorrhage or mass effect. Neurology consulted: Further stroke work-up includes: CT angiogram of head: No significant stenosis, occlusion, or aneurysm within the [place]. CTA of neck: No significant stenosis, occlusion or dissection identified within the carotid or vertebral arteries. Appreciate input from neurology (2) Left pontine stroke: MRI of brain: 02/20/2019: 6:14 PM 1. Increased size of an acute infarct left central kandice. 2. This currently measures 11 x 7 mm and has increased from a prior measurement of 3 mm. Order for PT OT's/speech eval, appreciate input Severe dysphagia, on NG tube, Intubated for respiratory failure As per PT note on 02/12/2019, patient will need acute rehab approximately 3 hours a day for PT, patient was seen at [facility] in past (3) Respiratory failure requiring intubation: Secondary to above Patient noted to have respiratory distress, utilizing abdominal muscles to breathe When asked: Regarding feeling of shortness of breath, patient Nodded "no" Appreciate input from educational manager: Differential also includes Obstructive sleep apnea/anxiety/central apnea secondary to brain stem/pontine stroke Nasal trumpet inserted by educational manager, showed no evidence of improvement breathing Low-dose Ativan, did not improve the symptom as well After discussing with family members,(educational manager spoke with patient yesterday regarding intubation, was willing/nodded "YES" ) Patient is intubated, for respiratory support/airway protection in the setting of acute mid brain stroke Present on Admission?: Yes (4) Aphasia due to acute cerebrovascular accident (CVA): Secondary to above: Acute left pontine stroke Expressive aphasia, patient is able to understand and communicate, follow commands accurately-by nodding head yes/no Was also able to write yesterday to communicate Severe dysphasia noted secondary to stroke At present intubated, to provide respiratory support for brainstem stroke Present on Admission?: Yes (5) Expressive aphasia: Due to above (6) Hypertensive emergency: Acute CVA Presented with BP in 200s o Home regimen: Coreg 12.5 mg twice daily, losartan hydrochlorothiazide daily Received IV labetalol 10 mg, Coreg 12.5 mg in ER Started on nicardipine drip in ICU -Permissive hypertension in the setting of acute CVA Low-dose Norvasc 5 mg daily ordered via NG tube (7) Diabetes mellitus: Recent HBA1C 8.8 Home regimen: Insulin Lantus 44 units nightly, insulin NovoLog 10 units AC at bedtime -Appreciate input for glycemic management in ICU Patient started with IV insulin protocol for glycemic management (8) Anxiety: -On trazodone at home Discontinued, Intubated at present right now on propofol drip NUTRITION Appreciate input from speech therapy, severe dysphagia noted, N.p.o., Has NG tube, started with tube feeding as per dietitian/nutrition recommendation CODE STATUS Full code DVT prophylaxis Heparin SQ DISPOSITION Continue to monitor in ICU Update given to family members by myself and educational manager Supervising Physician Co-Signing Physician Notes I have seen and discussed above patient with Dr Keli Orozco, neurology. Pt seen and examined. Discussed with Faviola, nursing and Dr Violetta Zaman. 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 During day yesterday developed facial numbness and difficulty with speech. This has waxed and waned. It had resolved in ER, with apparently no new neurologic deficits but approx 6 am today, after returning from MRI which showed a small acute L pontine infarct, the pt was noted to be alert, but essentially mute with genl weakness. Stroke alert called for second time , CT head repeated, poss L pontine hypodensity. Stroke neuro who had been called on initial presentation (did not rec TPA) and did not feel pt needed TPA. I have not been able to review the recs for the second call. Repeat MRI this evening shows a larger acute L pontine infarct. Good flow voids in the basilar and verts. CTA of head and neck yesterday show no high grade occlusion or stenosis. Pt has been hypertensive. Pt is awake, alert. Able to correctly pick answers to orientation by shaking head yes/no. Respirations are occasionally blowing, moreso R face than left. Pupils post surg,mid position and reactive. No gaze pref, nml EOM, no nystagmus. Bifacial weakness R>L, decreased corneals, decreased gag bl. UE bl weak, best 3/5, bl LE approx same, rle less than antigrav. Intact bl touch. Dystaxic bl UE, unable to perform in LE. UE symm, increased L knee jerk, present AJ, bl upgoing toes. Imp progression of L pontine infarct, in distribution of paramedian pontine artery. There is no large vessel occlusion, stenosis or thrombus. Bl symptomatology appears to be from baseline weakness on left due to prior stroke P. Gradual reduction of bp. Dr Zaman and I discussed volume expansion, but have elected not due to vascular congestion seen on CXR. Antiplt tx with rectal asa. When available to take PO, dual antiplt tx with asa and Plavix, statin Treatment of hyperglycemia. Monitor management of secretions, respiration, intubation if needed. DVT prophylaxis. KRISTY Orozco MD Subjective Patient seen in ICU room 109, Alert and awake, expressive aphasia, Marked right-sided facial droop, left upper extremity flaccid paralysis Patient appears to be grunting, uncomfortable, using abdominal muscle for respiration When asked, patient nods her head "no" to pain/discomfort/shortness of breath On repeat asking: Says "yes" to headache Ordered IV Tylenol, Family members: Sister Irina, daughter Nataly, son present at bedside Family did noted patient is more anxious, uncomfortable, appears to struggling to breathe Patient evaluated by educational manager at bedside Concern for central apnea secondary to brain strain stroke Patient will need mechanical ventilation for respiratory support educational manager discussed the plan with patient and family members yesterday, patient nodded "yes" Patient intubated, for airway protection, respiratory support Already has course of placed for tube feeding-had speech evaluation yesterday showed severe dysphasia, unable to protect airway during swallowing(overt aspiration/coughing noticed at bedside exam) Patient will continue to be monitored in ICU Physical Exam Constitutional: + mechanically ventilated Eyes: + anicteric sclerae ENMT: Right-sided facial droop, ET tube placed Neck: trachea midline, no thyromegaly Cardiovascular: RRR, no murmur, no edema Gastrointestinal (Abdomen): Inspection/Auscultation: normal bowel sounds Percussion/Palpation: abdomen soft Musculoskeletal: Left upper extremity flaccid paralysis, left lower extremity strength 3 out of 5 Right extremity upper/lower muscle strength 3 out of 5 Skin: no rashes, warm and dry Neurologic: Speech / Cognition: + expressive aphasia Acute strokelike symptoms, representing acute midbrain/pontine CVA Flaccid paralysis of left upper extremity, Right facial droop, expressive aphasia 3 out of 5 weakness on bilateral lower extremity, right upper extremity Results & Data Vital Signs (Past 12 Hours) Vital Signs Temp Pulse Resp BP Pulse Ox 02/21/19 09:01 106 H 14 155/82 H 94 02/21/19 09:00 101 H 21 93 02/21/19 08:30 110 H 22 92 02/21/19 08:01 101 H 19 162/75 H 94 02/21/19 08:00 98 H 21 94 02/21/19 07:46 98 H 16 166/73 H 94 02/21/19 07:31 102 H 17 176/80 H 93 02/21/19 07:30 99 H 18 93 02/21/19 07:16 101 H 15 151/104 H 94 02/21/19 07:01 100 H 20 150/73 H 94 02/21/19 07:00 94 H 19 93 02/21/19 06:46 104 H 20 162/78 H 94 02/21/19 06:45 97 H 18 92 02/21/19 06:01 98 H 20 155/82 H 95 02/21/19 06:00 96 H 18 96 02/21/19 05:53 98 H 19 148/84 H 96 02/21/19 05:51 103 H 26 H 210/199 H 97 02/21/19 05:49 104 H 15 97 02/21/19 05:31 94 H 18 149/78 H 95 02/21/19 05:30 96 H 18 95 02/21/19 05:16 94 H 20 153/82 H 96 02/21/19 05:15 99 H 21 95 02/21/19 05:01 92 H 19 147/73 H 96 02/21/19 05:00 90 18 96 02/21/19 04:46 86 18 159/79 H 96 02/21/19 04:45 92 H 19 96 02/21/19 04:31 100 H 15 139/93 95 02/21/19 04:30 95 H 21 96 02/21/19 04:16 99 H 20 132/77 94 02/21/19 04:15 99 H 19 94 02/21/19 04:01 85 21 135/66 96 02/21/19 04:00 36.9 C 90 18 96 02/21/19 03:46 88 20 139/71 96 02/21/19 03:45 91 H 22 96 02/21/19 03:31 99 H 20 165/66 H 95 02/21/19 03:30 99 H 19 94 02/21/19 03:16 93 H 18 147/71 H 94 02/21/19 03:15 97 H 20 94 02/21/19 03:01 101 H 20 143/73 H 97 02/21/19 03:00 91 H 20 95 02/21/19 02:46 97 H 20 149/90 H 97 02/21/19 02:45 96 H 20 96 02/21/19 02:31 96 H 17 148/76 H 95 02/21/19 02:30 97 H 20 94 02/21/19 02:16 99 H 19 142/75 H 95 02/21/19 02:15 85 18 95 02/21/19 02:01 95 H 22 147/74 H 94 02/21/19 02:00 93 H 21 94 02/21/19 01:46 95 H 18 146/72 H 95 02/21/19 01:45 98 H 18 95 02/21/19 01:31 91 H 21 153/75 H 95 02/21/19 01:30 89 20 94 02/21/19 01:16 90 21 159/83 H 95 02/21/19 01:15 86 20 95 02/21/19 01:01 85 20 135/70 94 02/21/19 01:00 85 20 94 02/21/19 00:46 105 H 24 155/80 H 96 02/21/19 00:45 108 H 18 96 02/21/19 00:41 105 H 161/78 H 02/21/19 00:31 106 H 23 161/78 H 94 02/21/19 00:30 108 H 14 97 02/21/19 00:16 102 H 22 166/73 H 94 02/21/19 00:15 102 H 20 94 02/21/19 00:01 96 H 19 145/69 H 94 02/21/19 00:00 37 C 98 H 20 94 02/20/19 23:46 102 H 21 149/73 H 94 02/20/19 23:45 95 H 21 94 02/20/19 23:31 90 21 147/76 H 91 02/20/19 23:30 101 H 22 91 02/20/19 23:16 108 H 23 153/84 H 93 02/20/19 23:15 104 H 23 93 02/20/19 23:01 99 H 22 157/81 H 93 02/20/19 23:00 100 H 19 93 02/20/19 22:46 105 H 23 168/76 H 92 02/20/19 22:45 106 H 24 92 02/20/19 22:31 108 H 21 167/78 H 92 02/20/19 22:30 104 H 21 93 (1) Diabetes mellitus Diabetes mellitus type: type 2 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
[2019-02-21] MEDS ORDERED: PROPOFOL IV EMULSION 10 MG/ML 100 ML VIAL IV ONE (10:28)
[2019-02-21] MEDS ORDERED: LIDOCAINE 2% JELLY 5 ML TUBE EXT ONE (10:30)
[2019-02-21] MEDS ORDERED: LABETALOL HCL IV 5 MG/ML 20ML IV ONE (10:44)
[2019-02-21] MEDS ORDERED: POTASSIUM CHLORIDE 20 MEQ/15 ML UDC GT STA (10:49)
[2019-02-21] MEDS: PROPOFOL 1,000 MG/100 ML VIAL IV SCH ×5 (11:00→22:16)
--- NOTE | 2019-02-21 11:06 | Critical Care Progress Note ---
Date of Service February 21, 2019 Assessment & Plan (1) Diabetes mellitus: pharmacy consult for glycemic control. Will start insulin drip as she was running hyperglycemic despite being NPO overnight. (2) CVA (cerebral vascular accident): plavix 75 mg via NG daily aspirin 81 mg via NG LDL at goal of 57 would continue home dose of crestor via NG Would repeat CT scan in 24 hours or earlier if change in symptoms (3) Hypertensive emergency: nicardipine drip to maintain SBP 140-160 (4) Admitted to intensive care unit: 63 yo female with h/o DM HTN and prior storkes admitted with brainstem infarct and she is out of TPA window symptoms evolving with aphasia and R sided weakness. Also she is in hypertensive emergency and it is controlled by nicardipine neuro nicardipine as above neurochecks Q1hr now sedated with propofol. If she needs further BP control will transition to amlodipine OT/PT consult plavix and ASA as above respiratory so far her ABG and respiratory status are stable. I discussed with her the possibility of placing her on MV for airway protection and she was hesitant but agreed if it is life saving CV HTive urgency control with nicardipine lipitor instead of crestor as latter does not go through NG renal replete K FU lytes and replete DM pharmacy consult for glycemic control would prefer to be a little on the hyperglycemic side rather than <100 SCCM recommendation DVT prophylaxis SCD Patient is critically ill and will be monitored in MICU CCTime is 55 minutes Subjective Patient was seen at bedside and she appeared to have difficulty breathing with use of accessory muscles. She had upper airway noises. A nasal trumpet was inserted and the patient continued to have problems breathing. As such it was determined this was not related to a component of KOKI. We proceeded with intubation with her consent and that of the family. Patient had NG inserted. Her neuroexam this am continued to show aphasia but adequate response to verbal orders and communication She is currently sedated on prolofol which helped control her BP Review of Systems Review of Systems: Unobtainable due to mental health condition Physical Exam Constitutional: well nourished, + morbidly obese and + behavioral limitations Intubated and sedated. ET tube size 7.5 at 22 cm on the lower lip Eyes: PERRL, conjunctivae normal, anicteric sclerae ENMT: external ear and nose normal, oropharynx normal NG left nare Neck: trachea midline, no thyromegaly Respiratory: atridor and accessory mucle use prior to intubation after intubation clear b/l Air entry Cardiovascular: RRR, no murmur, no edema Gastrointestinal (Abdomen): normal bowel sounds, soft, nontender, no hepatosplenomegaly Musculoskeletal: no cyanosis or clubbing, extremities motor strength 5/5 Skin: no rashes, warm and dry Results & Data Vital Signs (Past 12 Hours) Vital Signs Temp Pulse Resp BP Pulse Ox 02/21/19 10:49 111 H 159/83 H 02/21/19 09:01 106 H 14 155/82 H 94 02/21/19 09:00 101 H 21 93 02/21/19 08:30 110 H 22 92 02/21/19 08:01 101 H 19 162/75 H 94 02/21/19 08:00 98 H 21 94 02/21/19 07:46 98 H 16 166/73 H 94 02/21/19 07:31 102 H 17 176/80 H 93 02/21/19 07:30 99 H 18 93 02/21/19 07:16 101 H 15 151/104 H 94 02/21/19 07:01 100 H 20 150/73 H 94 02/21/19 07:00 94 H 19 93 02/21/19 06:46 104 H 20 162/78 H 94 02/21/19 06:45 97 H 18 92 02/21/19 06:01 98 H 20 155/82 H 95 02/21/19 06:00 96 H 18 96 02/21/19 05:53 98 H 19 148/84 H 96 02/21/19 05:51 103 H 26 H 210/199 H 97 02/21/19 05:49 104 H 15 97 02/21/19 05:31 94 H 18 149/78 H 95 02/21/19 05:30 96 H 18 95 02/21/19 05:16 94 H 20 153/82 H 96 02/21/19 05:15 99 H 21 95 02/21/19 05:01 92 H 19 147/73 H 96 02/21/19 05:00 90 18 96 02/21/19 04:46 86 18 159/79 H 96 02/21/19 04:45 92 H 19 96 02/21/19 04:31 100 H 15 139/93 95 02/21/19 04:30 95 H 21 96 02/21/19 04:16 99 H 20 132/77 94 02/21/19 04:15 99 H 19 94 02/21/19 04:01 85 21 135/66 96 02/21/19 04:00 36.9 C 90 18 96 02/21/19 03:46 88 20 139/71 96 02/21/19 03:45 91 H 22 96 02/21/19 03:31 99 H 20 165/66 H 95 02/21/19 03:30 99 H 19 94 02/21/19 03:16 93 H 18 147/71 H 94 02/21/19 03:15 97 H 20 94 02/21/19 03:01 101 H 20 143/73 H 97 02/21/19 03:00 91 H 20 95 02/21/19 02:46 97 H 20 149/90 H 97 02/21/19 02:45 96 H 20 96 02/21/19 02:31 96 H 17 148/76 H 95 02/21/19 02:30 97 H 20 94 02/21/19 02:16 99 H 19 142/75 H 95 02/21/19 02:15 85 18 95 02/21/19 02:01 95 H 22 147/74 H 94 02/21/19 02:00 93 H 21 94 02/21/19 01:46 95 H 18 146/72 H 95 02/21/19 01:45 98 H 18 95 02/21/19 01:31 91 H 21 153/75 H 95 02/21/19 01:30 89 20 94 02/21/19 01:16 90 21 159/83 H 95 02/21/19 01:15 86 20 95 02/21/19 01:01 85 20 135/70 94 02/21/19 01:00 85 20 94 02/21/19 00:46 105 H 24 155/80 H 96 02/21/19 00:45 108 H 18 96 02/21/19 00:41 105 H 161/78 H 02/21/19 00:31 106 H 23 161/78 H 94 02/21/19 00:30 108 H 14 97 02/21/19 00:16 102 H 22 166/73 H 94 02/21/19 00:15 102 H 20 94 02/21/19 00:01 96 H 19 145/69 H 94 02/21/19 00:00 37 C 98 H 20 94 02/20/19 23:46 102 H 21 149/73 H 94 02/20/19 23:45 95 H 21 94 02/20/19 23:31 90 21 147/76 H 91 02/20/19 23:30 101 H 22 91 02/20/19 23:16 108 H 23 153/84 H 93 02/20/19 23:15 104 H 23 93 02/20/19 23:01 99 H 22 157/81 H 93 02/20/19 23:00 100 H 19 93
--- NOTE | 2019-02-21 11:09 | Pharmacy Report ---
Pharmacy Glycemic Short Note 2 - Date of Service February 21, 2019 - Glycemic Short BSG Results (Last 24 hours): 02/20/19 02/20/19 02/21/19 11:19 18:17 00:39 Glucose POC Glucose 220 H 189 H 236 H 02/21/19 02/21/19 02/21/19 04:05 04:30 08:17 Glucose 225 H POC Glucose 215 H 239 H OUTPATIENT ANTIDIABETIC REGIMEN: * Basaglar 44 units Q HS * Novolog 10 units w/ meals * Metformin 1 gm PO BID * A1c = 8.8% 02/20/19 ASSESSMENT: * Type 2 diabetic admitted for CVA * She has been admitted to the ICU for management of worsening CVA symptoms and hypertension * This AM she did require intubation * BSGs have been in the 200's and given her neurologic injury, tight glycemic control is imperative. Prevention of both hyperglycemia and hypoglycemia is best achieved with an IV insulin infusion in this setting. * She will likely be initiated on tube feeds today. Will allow IV insulin infusion to cover carbs provided in feedings to prevent "peaks and valleys" associated with Regular SQ insulin administration. PLAN FOR INPATIENT GLYCEMIC CONTROL: * Hold outpatient oral diabetes medications (metformin) * IV insulin infusion, per moderate stress protocol * Goal range: 120-180mg/dL PLAN FOR DISCHARGE: * To be determined
--- NOTE | 2019-02-21 11:10 | XRay Report ---
XR chest 1V portable CLINICAL HISTORY: Respiratory failure COMPARISON STUDY: 02/20/2019 FINDINGS: There is an endotracheal tube 15 mm above the kayleen. The heart is borderline enlarged. The re is no overt failure. There is no focal pulmonary consolidation. There are no pleural effusions. A nasogastric tube passes into the stomach.[ IMPRESSION: 1. Nasogastric tube which passes into the stomach 2. Endotracheal tube 15 mm above the kayleen 3. No evidence of focal pulmonary consolidation Electronically signed by: Boyd Franklin M.D. 02/21/2019 11:08 AM
[2019-02-21] MEDS ORDERED: ROSUVASTATIN CALCIUM 20 MG TAB PO SCH (11:15)
[2019-02-21] MEDS: PEPTAMEN INTENSE VHP 1.0 CAL 1,000 ML BAG OG SCH (11:30)
[2019-02-21 11:37] LABS: Magnesium 1.7 mg/dl (1.8-2.4); Phosphorus 2.9 mg/dl (2.5-4.9)
[2019-02-21] MEDS: ATORVASTATIN 40 MG TAB GT SCH (12:24)
--- NOTE | 2019-02-21 12:30 | Operative Report ---
DATE OF OPERATION: 02/21/2019 PROCEDURE: Emergent endotracheal intubation. CONSENT: Informed consent was obtained from the patient yesterday as she has an evolving pontine infarct, and it was expected that she might not be able to protect her airway. MONITORING: Throughout the procedure, pulse oximetry, ECG, and blood pressure monitoring via cuff insufflation method was carried out. DESCRIPTION OF THE PROCEDURE: 100 mg of propofol was given IV slowly to achieve sedation in this patient. She had been prior ventilated with an ambu bag at 100% FIO2 to achieve an SpO2 of 98%. When sedation was confirmed, the size 3 GlideScope laryngoscope was inserted through her mouth, and the vocal cords were visualized. The arytenoids were swollen, and her upper airway was swollen. A size 7.5 mm ET tube was then inserted in between her vocal cords under video visualization. The stylet was removed. The tube was fixed at 22 cm on the lip. Bilateral lung field auscultation confirmed air entry both on the left and the right. Auscultation over the epigastrium confirmed absence of air. Qualitative end tidal CO2 confirmed exhalation of carbon dioxide. The ET tube was then connected to the mechanical ventilator, and the tube was fixed to the skin. The patient remained in stable status throughout. COMPLICATIONS: None apparent. It was achieved in the first attempt. The lowest SpO2 during the attempt was 84%. I attest to the content of the Intraoperative Record and any orders documented therein. Any exception s are noted below.
[2019-02-21 12:34] LABS: iSTAT Allen Test Pass; iSTAT Arterial Blood Gas HCO3 24 meg/L (19-24); iSTAT Carbon Dioxide 25 mEq/l (24-31); iSTAT Site R Radial
[2019-02-21 12:39] LABS: iSTAT Art Bld Gas pCO2 Correct 32 mmHg (35-46); iSTAT Art Bld Gas pH Corrected 7.486 (7.35-7.45); iSTAT Arterial Blood Gas pCO2 32 mmHg (35-46); iSTAT Arterial Blood Gas pH 7.48 (7.35-7.45)
--- NOTE | 2019-02-21 13:12 | Neurology Progress Note ---
Date of Service February 21, 2019 Assessment & Plan (1) Expressive aphasia: 1. MRI small punctate left aspect of kandice 2. CTA head/neck -no signficant stenosis 3. CXR pulmonary vascular congestion 4. TTE no ASD 5. aspirin MI given 6. UTI - ceftriaxone given 7. optimize HTN, HLD, DM LDL <70 -after 24 hours 8. repeat MRI brain -ordered to r/o further stroke event- enlargement of stroke 9. intubated - for airway protection 10. recovery is complicated with morbid obesity, DM, vascular risk factors Supervising Physician Co-Signing Physician Notes I have seen and discussed above patient with Dr Keli Orozco, neurology Correction to above, pt does not have expressive aphasia, has profound dysarthria. Events noted, pt required intubation due to respiratory fatigue. Prior to intubation this AM per nursingpt was mute, followed commands, able to accurately shake head yes/no and had reactive pupils. Pt is intubated and sedated. Pupils miotic min reactive, no fixed gaze pref. Decreased corneals, no wd, toes upgoi ng. Imp prior R hemisp deep white matter infarct with superimposed L pontine infarct. Pt currently sedated, reassuring and unchanged exam prior to intubation. Mildly concerning re "pontine pupils". P supportive care, asa per rectum. Gradual reduction of bp, hydration if tolerated by cardiovasc status. DVT prophylaxis. Infarct appears radiographically to be a parapmedian pontine penetrating vessel, ie no large vessel stenosis, occlusion seen on CTA and no cardiac source. Discussed with daughter. I spoke with pt daughter about transfer, although indicated that I did not think a tertiary care center could provide any therapeutic intervention. Daughter wants her mom to stay here. Will consider repeat CT head depending on clinical status. KRISTY Orozco MD Jayden Villalobos is a 63 year old female with PMH DM, hypomagnesemia, history of CVA, history of left-sided weakness about 8-9 years ago, HTN, morbid obesity, osteoarthritis of hip, depression, primary insomnia, presents with stroke-like symptoms. Yesterday she went outside with her dog when she suddenly felt numbness in the right side of the face. She called her sister and EMS was c alled in and she was brought into the hospital and on the way she had a brief episode of difficulty speaking. Then around 6 p.m. she suddenly became aphasic, stroke alert was called and by the time she went to CAT scan and came back, her speech came back to normal. CT of the head showed subacute right periventricular infarct, old right internal capsule infarct, no acute intracranial hemorrhage. CTA of the head and neck were unremarkable. Her symptoms improved and no tPa was ordered. During the episode, she had some shortness of breath. She has some weakness left side from her previous stroke, but ambulates okay. Currently she is unable to speech when asked to answer questions there is no vocal sound. She becomes tearful when ask to try to speak. she does take aspirin 81 mg at home since her previous stroke. She is currently intubated for airway protection. Her daughter is bedside who is the POA. discussion regarding the increase to the brainstem stroke and progress of time with prognosis. Physical Exam Physical Exam: Gen: trys to open eyes with voice command unequal pupils lungs: course breath sound and wheezing CV RRR moves UE/LE with stimulation up going toes Results & Data Vital Signs (Past 12 Hours) Vital Signs Temp Pulse Resp BP Pulse Ox 02/21/19 10:49 111 H 159/83 H 02/21/19 10:45 118 H 18 95 02/21/19 09:01 106 H 14 155/82 H 94 02/21/19 09:00 101 H 21 93 02/21/19 08:30 110 H 22 92 02/21/19 08:01 101 H 19 162/75 H 94 02/21/19 08:00 98 H 21 94 02/21/19 07:46 98 H 16 166/73 H 94 02/21/19 07:31 102 H 17 176/80 H 93 02/21/19 07:30 99 H 18 93 02/21/19 07:16 101 H 15 151/104 H 94 02/21/19 07:01 100 H 20 150/73 H 94 02/21/19 07:00 94 H 19 93 02/21/19 06:46 104 H 20 162/78 H 94 02/21/19 06:45 97 H 18 92 02/21/19 06:01 98 H 20 155/82 H 95 02/21/19 06:00 96 H 18 96 02/21/19 05:53 98 H 19 148/84 H 96 02/21/19 05:51 103 H 26 H 210/199 H 97 02/21/19 05:49 104 H 15 97 02/21/19 05:31 94 H 18 149/78 H 95 02/21/19 05:30 96 H 18 95 02/21/19 05:16 94 H 20 153/82 H 96 02/21/19 05:15 99 H 21 95 02/21/19 05:01 92 H 19 147/73 H 96 02/21/19 05:00 90 18 96 02/21/19 04:46 86 18 159/79 H 96 02/21/19 04:45 92 H 19 96 02/21/19 04:31 100 H 15 139/93 95 02/21/19 04:30 95 H 21 96 02/21/19 04:16 99 H 20 132/77 94 02/21/19 04:15 99 H 19 94 02/21/19 04:01 85 21 135/66 96 02/21/19 04:00 36.9 C 90 18 96 02/21/19 03:46 88 20 139/71 96 02/21/19 03:45 91 H 22 96 02/21/19 03:31 99 H 20 165/66 H 95 02/21/19 03:30 99 H 19 94 02/21/19 03:16 93 H 18 147/71 H 94 02/21/19 03:15 97 H 20 94 02/21/19 03:01 101 H 20 143/73 H 97 02/21/19 03:00 91 H 20 95 02/21/19 02:46 97 H 20 149/90 H 97 02/21/19 02:45 96 H 20 96 02/21/19 02:31 96 H 17 148/76 H 95 02/21/19 02:30 97 H 20 94 02/21/19 02:16 99 H 19 142/75 H 95 02/21/19 02:15 85 18 95 02/21/19 02:01 95 H 22 147/74 H 94 02/21/19 02:00 93 H 21 94 02/21/19 01:46 95 H 18 146/72 H 95 02/21/19 01:45 98 H 18 95 02/21/19 01:31 91 H 21 153/75 H 95 02/21/19 01:30 89 20 94 02/21/19 01:16 90 21 159/83 H 95 02/21/19 01:15 86 20 95 Laboratory Results Abnormal lab results 02/20/19 02/20/19 02/21/19 Range/Units 18:17 18:45 00:39 MCV (80-100) fL RDW Coeff of Kimberly (11.5-14.5) % Immature Gran # (Auto) (0.00-0.02) K/uL Neut # (Auto) (1.4-6.5) K/uL POC pH 7.48 H (7.35-7.45) POC pCO2 32 L (35-46) mmHg ABG pH (Temp Correct) 7.486 H (7.35-7.45) ABG pCO2 (Temp Corrct 32 L (35-46) mmHg POC ABG O2 Sat 97.0 H (90-95) % Glucose (70-99) mg/dl POC Glucose 189 H 236 H (70-99) Magnesium (1.8-2.4) mg/dl 02/21/19 02/21/19 02/21/19 Range/Units 04:05 04:30 04:30 MCV 78.1 L (80-100) fL RDW Coeff of Kimberly 15.1 H (11.5-14.5) % Immature Gran # (Auto) 0.03 H (0.00-0.02) K/uL Neut # (Auto) 7.87 H (1.4-6.5) K/uL POC pH (7.35-7.45) POC pCO2 (35-46) mmHg ABG pH (Temp Correct) (7.35-7.45) ABG pCO2 (Temp Corrct (35-46) mmHg POC ABG O2 Sat (90-95) % Glucose 225 H (70-99) mg/dl POC Glucose 215 H (70-99) Magnesium (1.8-2.4) mg/dl 02/21/19 02/21/19 02/21/19 Range/Units 08:17 10:55 11:21 MCV (80-100) fL RDW Coeff of Kimberly (11.5-14.5) % Immature Gran # (Auto) (0.00-0.02) K/uL Neut # (Auto) (1.4-6.5) K/uL POC pH (7.35-7.45) POC pCO2 (35-46) mmHg ABG pH (Temp Correct) (7.35-7.45) ABG pCO2 (Temp Corrct (35-46) mmHg POC ABG O2 Sat (90-95) % Glucose (70-99) mg/dl POC Glucose 239 H 274 H (70-99) Magnesium 1.7 L (1.8-2.4) mg/dl 02/21/19 Range/Units 12:33 MCV (80-100) fL RDW Coeff of Kimberly (11.5-14.5) % Immature Gran # (Auto) (0.00-0.02) K/uL Neut # (Auto) (1.4-6.5) K/uL POC pH (7.35-7.45) POC pCO2 (35-46) mmHg ABG pH (Temp Correct) (7.35-7.45) ABG pCO2 (Temp Corrct (35-46) mmHg POC ABG O2 Sat (90-95) % Glucose (70-99) mg/dl POC Glucose 218 H (70-99) Magnesium (1.8-2.4) mg/dl Diagnostic Findings MRI brain- Increased size of an acute infarct left central kandice. This currently measures 11 x 7 mm and has increased from a prior measurement of 3 mm. All additional findings are unchanged compared to the prior study with no additional acute process. KUB-Tube placed in the mid stomach. Nonobstructive bowel pattern. CXR-. Nasogastric tube which passes into the stomach Endotracheal tube 15 mm above the kayleen No evidence of focal pulmonary consolidation
[2019-02-21] MEDS: cefTRIAXone SODIUM 2,000 MG in DEXTROSE 5% 50 ML IV SCH (16:04)
--- NOTE | 2019-02-21 16:12 | XRay Report ---
XR chest 1V portable HISTORY: central line placement COMPARISON: Chest 02/21/2019. FINDINGS: Endotracheal tube terminates approximately 3.7 cm from the kayleen. Nasogastric tube termina burton below the diaphragm. The tip is not included in this study. Right jugular central venous catheter terminates in the expected location of the SVC. No pneumothorax. The heart is normal in size. Bibasi lar linear densities favor atelectasis. IMPRESSION: Satisfactory support line placement. No pneumothorax. Electronically signed by: Fritz Shipman M.D. 02/21/2019 4:10 PM
[2019-02-21] MEDS ORDERED: ACETAMINOPHEN SOL 650 MG/20.3 ML UDC PO STA (21:27)
[2019-02-21] MEDS ORDERED: PIPERACILL/TAZOBAC CONSULT ACTIVE PRN (21:28)
[2019-02-21] MEDS ORDERED: PIPERACILLIN/TAZOBACTAM 3.375 GM in DEXTROSE 5% 100 ML IV SCH (21:30)
[2019-02-21] MEDS ORDERED: PIPERACILLIN/TAZOBACTAM 4.5 GM in DEXTROSE 5% 100 ML IV ONE (21:45)
[2019-02-21] MEDS ORDERED: ACETAMINOPHEN SOL 650 MG/20.3 ML UDC PO PRN (22:04)
[2019-02-22] MEDS: PROPOFOL 1,000 MG/100 ML VIAL IV SCH ×6 (01:35→21:57)
[2019-02-22] MEDS: PIPERACILLIN/TAZOBACTAM 4.5 GM in DEXTROSE 5% 100 ML IV SCH ×3 (01:57→18:20)
[2019-02-22 04:31] LABS: Basophils # (auto) 0.03 K/uL (0-0.2); Basophils % (auto) 0.2 %; Hematocrit (blood only) 35.5 % (37-47); Hemoglobin 11.7 g/dL (12.0-16.0); Immature Granulocytes # (auto) 0.07 K/uL (0.00-0.02); Immature Granulocytes % (auto) 0.4 %; Lymphocytes # (auto) 1.74 K/uL (1.2-3.4); Lymphocytes % (auto) 9.9 %; Mean Corpuscular Volume 80.3 fL (80-100); Mean Platelet Volume 9.1 fL (7.4-10.4); Monocytes # (auto) 1.01 K/uL (0.11-0.59); Monocytes % (auto) 5.7 %; Neutrophils # (auto) 14.74 K/uL (1.4-6.5); Neutrophils % (auto) 83.8 %; Platelet Count 286 K/uL (130-400); RDW Coefficient of Variation 15.3 % (11.5-14.5); RDW Standard Deviation 44.9 fL (36.4-46.3); Red Blood Count 4.42 M/uL (4.2-5.4); White Blood Count 17.59 K/uL (4.8-10.8)
[2019-02-22 04:56] LABS: BUN Creatinine Ratio 24.8 (10-20); Calcium 8.6 mg/dl (8.5-10.1); Creatinine Clr Calc Pharmacy 88.6 ml/min; Est GFR (African American) 95.9; Est GFR (Non-African American) 82.8; Magnesium 1.8 mg/dl (1.8-2.4); Potassium 3.3 mmol/L (3.5-5.1)
[2019-02-22] MEDS ORDERED: POTASSIUM CHLORIDE 10 MEQ TABCR PO STA (05:21)
[2019-02-22] MEDS ORDERED: SODIUM PHOSPHATE 3 MMOL/1 ML INFUSION IV STA (05:21)
[2019-02-22] MEDS: HEPARIN SOD 5,000 UNIT/0.5 ML VIAL SQ SCH ×3 (05:43→21:56)
[2019-02-22] MEDS ORDERED: SODIUM PHOSPHATE 15 MMOL in SODIUM CHLORIDE 0.9% 250 ML IV ONE (05:45)
[2019-02-22] MEDS: METOPROLOL TARTRATE 1 MG/ML VIAL IV SCH ×2 (06:43→13:24)
[2019-02-22] MEDS ORDERED: ROSUVASTATIN CALCIUM 20 MG TAB GT SCH (09:00)
[2019-02-22] MEDS ORDERED: fentaNYL DRIP 1,250 MCG/250 ML BAG IV SCH (10:15)
[2019-02-22] MEDS: CLOPIDOGREL BISULFATE 75 MG TAB PO SCH (10:35)
[2019-02-22] MEDS: ASPIRIN 81 MG CHEW NG SCH (10:35)
[2019-02-22] MEDS: AMLODIPINE BESYLATE 5 MG TAB PO SCH (10:35)
[2019-02-22] MEDS: LANSOPRAZOLE 30 MG SOLTAB NG SCH (10:35)
[2019-02-22] MEDS: ATORVASTATIN 40 MG TAB GT SCH (10:35)
[2019-02-22] MEDS: MAGNESIUM OXIDE 400 MG TAB PO SCH (11:35)
--- NOTE | 2019-02-22 12:09 | Pharmacy Report ---
Pharmacy Glycemic Short Note 2 - Date of Service February 22, 2019 - Glycemic Short BSG Results (Last 24 hours): 02/21/19 02/21/19 02/21/19 12:33 13:24 14:27 Glucose POC Glucose 218 H 234 H 227 H 02/21/19 02/21/19 02/21/19 16:02 17:31 18:41 Glucose POC Glucose 224 H 227 H 206 H 02/21/19 02/21/19 02/21/19 19:37 20:32 21:33 Glucose POC Glucose 225 H 230 H 193 H 02/21/19 02/21/19 02/22/19 22:30 23:34 00:30 Glucose POC Glucose 231 H 240 H 222 H 02/22/19 02/22/19 02/22/19 01:34 02:29 03:30 Glucose POC Glucose 202 H 205 H 182 H 02/22/19 02/22/19 02/22/19 04:17 04:20 05:38 Glucose 184 H POC Glucose 177 H 167 H 02/22/19 02/22/19 07:51 10:22 Glucose POC Glucose 143 H 134 H OUTPATIENT ANTIDIABETIC REGIMEN: * Basaglar 44 units Q HS * Novolog 10 units w/ meals * Metformin 1 gm PO BID * A1c = 8.8% 02/20/19 ASSESSMENT: 02/22 * BSGs remained elevated throughout the day yesterday despite IV insulin inf usion, likely due to ongoing stressors and upwards titration of continuous tube feedings. BSGs are now within goal range however. * IV insulin infusion continues this AM, most recently running at 7.1 units/hr. * Tube feeds (Peptamen VHP) are currently @40cc/hr with orders to titrate up to goal of 80cc/hr * She has developed a fever and increasing WBC leading to increased suspicion of infxn. ABX therapy broadened last evening. * Given critical illness and recent neurologic insulin, IV insulin drip remains safest and most appropriate treatment modality for glycemic control 02/21 * Type 2 diabetic admitted for CVA * She has been admitted to the ICU for management of worsening CVA symptoms and hypertension * This AM she did require intubation * BSGs have been in the 200's and given her neurologic injury, tight glycemic control is imperative. Prevention of both hyperglycemia and hypoglycemia is best achieved with an IV insulin infusion in this setting. * She will likely be initiated on tube feeds today. Will allow IV insulin infusion to cover carbs provided in feedings to prevent "peaks and valleys" associated with Regular SQ insulin administration. PLAN FOR INPATIENT GLYCEMIC CONTROL: * Hold outpatient oral diabetes medications (metformin) * Continue IV insulin infusion, per moderate stress protocol * Goal range: 120-180mg/dL * Do not use Novolog SQ to cover carbs in contiuous tube feedings as this can lead to "peaks" and "troughs" and fluctuating IV infusion rates PLAN FOR DISCHARGE: * To be determined
[2019-02-22] MEDS ORDERED: METOPROLOL TARTRATE 1 MG/ML VIAL IV PRN (13:26)
--- NOTE | 2019-02-22 13:28 | CT Scan Report ---
HEAD CT NONCONTRAST CT DOSE: 537.48 mGy.cm HISTORY: Stroke symptoms. stroke TECHNIQUE: Multiaxial CT images of the head were performed without the use of intravenous contrast. A utomated exposure control was utilized for this study. A dose lowering technique was utilized adheri ng to the principles of ALARA. Comparison: Head CT 02/20/2019. Findings: Mild mucosal thickening within the left max a sinus and trace fluid levels within the paran cassidy sinuses and sphenoid sinuses. A left-sided nasogastric tube is noted. The mastoid air cells are clear. The calvarium and skull base are intact. There is no mass, hematoma, midline shift, acute infa rct. White matter hypodensity is nonspecific but suggestive of microvascular ischemic change. The amadou tricles and sulci demonstrate mild age-related involutional changes. Right basal ganglia old infarct remains unchanged. The patient's punctate left pontine infarct described on the prior MRI is not iden tified by CT. Impression: No significant change compared to the prior study. No acute intracranial abnormality. Electronically signed by: Fritz Shipman M.D. 02/22/2019 1:27 PM
--- NOTE | 2019-02-22 15:24 | Critical Care Progress Note ---
Date of Service February 22, 2019 Assessment & Plan (1) Diabetes mellitus: pharmacy consult for glycemic control. Will start insulin drip as she was running hyperglycemic despite being NPO overnight. (2) CVA (cerebral vascular accident): plavix 75 mg via NG daily aspirin 81 mg via NG LDL at goal of 57 would continue home dose of crestor via NG Would repeat CT scan in 24 hours or earlier if change in symptoms (3) Hypertensive emergency: amodipine 5 mg PNG and metoprolol 5 mg PO Q6 PRN to maintain SBP 140-160 (4) Admitted to intensive care unit: 63 yo female with h/o DM HTN and prior storkes admitted with brainstem infarct and she is out of TPA window symptoms evolving with aphasia and R sided weakness. Also she is in hypertensive emergency and it is controlled by nicardipine neuro amodipine 5 mg PNG and metoprolol 5 mg PO Q6 PRN to maintain SBP 140-160 neurochecks Q1hr now sedated with propofol. If she needs further BP control will transition to am lodipine OT/PT consult plavix and ASA as above respiratory so far her ABG and respiratory status are stable. Will stop sedation in am and start SBT CV metoprolol and amlodipine as above lipitor through NG renal replete K FU lytes and replete DM pharmacy consult for glycemic control would prefer to be a little on the hyperglycemic side rather than <100 SCCM recommendation DVT prophylaxis heparin SC Patient is critically ill and will be monitored in MICU CCTime is 45 minutes Subjective She was intubated to protect her airway yesterday nd has been on the ventilator there is purulent secretions and will send for culture. She has brought her BP sown to the 140s and she is off cardene now. DOes not move extremities and tolerated being on PSV throughout the day had low grade fever yesterday and zosyn replaced ceftriaxone Physical Exam Constitutional: well nourished, + morbidly obese and + behavioral limitations Eyes: PERRL, conjunctivae normal, anicteric sclerae ENMT: external ear and nose normal, oropharynx normal Neck: trachea midline, no thyromegaly Cardiovascular: RRR, no murmur, no edema Gastrointestinal (Abdomen): normal bowel sounds, soft, nontender, no hepatosplenomegaly Musculoskeletal: no cyanosis or clubbing, extremities motor strength 5/5 Skin: no rashes, warm and dry Results & Data Vital Signs (Past 12 Hours) Vital Signs Temp Pulse Pulse Resp BP BP Pulse Ox 02/22/19 13:35 105 H 28 H 98 02/22/19 12:30 96 H 145/77 H 95 02/22/19 12:00 97 H 156/78 H 96 02/22/19 11:30 104 H 24 145/90 H 100 02/22/19 11:00 103 H 144/78 H 94 02/22/19 10:30 105 H 158/78 H 94 02/22/19 10:00 97 H 155/73 H 95 02/22/19 09:30 91 H 141/67 H 95 02/22/19 09:00 92 H 144/67 H 95 02/22/19 08:30 95 H 146/72 H 96 02/22/19 08:04 95 H 23 95 02/22/19 08:00 105 H 147/75 H 99 02/22/19 07:57 96 H 18 95 02/22/19 07:30 94 H 146/69 H 95 02/22/19 06:00 98 H 18 146/68 H 94 02/22/19 05:00 108 H 99 H 24 133/71 95 02/22/19 04:00 37.8 C H 102 H 20 152/73 H 95 (1) Diabetes mellitus Diabetes mellitus type: type 2 Diabetes mellitus glost placer insulin use: with mcfp use Diabetes mellitus complication status: with kidney complications Diabetes mellitus complication detail: with chronic kidney disease Chronic kidney disease stage: stage 3 (moderate) Qualified Code(s): E11.22 - Type 2 diabetes mellitus with diabetic chronic kidney disease; N18.3 - Chronic kidney disease, stage 3 (moderate); Z79.4 - retirement (current) use of insulin
--- NOTE | 2019-02-22 17:24 | Hospitalist Progress Note ---
Date of Service February 22, 2019 Assessment & Plan (1) Acute CVA (cerebrovascular accident): 02/22/2019: Remains intubated, noted to have decline in neurological status/brainstem reflexes, which is usually noted in large brainstem stroke causing "locked in" syndrome 02/21/2019: Intubated for airway protection respiratory failure 02/19/2019 : patient came in with right facial numbness followed by expressive aphasia which resolved after few hours. Stroke alert was called: [facility] Neurology did not recommend TPA -as neurological symptoms had resolved, suspicion was TIA - secondary to HTN emergency CT head on: 02/19/2019 showed subacute right periventricular infarct. CTA head/neckno stenosis. MRI brain on 02/20/2019 AT 4:41 AM showed tiny acute to subacute infarct not excluded, question of punctate focus of restricted diffusion in left aspect of kandice. 02/19/2019 around 6 AM : She developed expressive aphasia, flaccid left upper extremity weakness NIH scale score up to 7 from 2 Stroke alert was called(second time) Patient was not given TPA-as pt was thought to be of of window of the TPA treatment as per [place] [facility]y . Transferred to ICU . Repeat CT head noncontrast:02/20/2019 6:47 AM IMPRESSION: No significant change from the prior study. No acute findings. No evidence of acute hemorrhage. severe dysphagia noted -pt was ASA 300 mg OK x1 Patient is started with aspirin/Plavix via NG tube-for secondary prophylaxis statin will be continued LDL at goal 57 MRI of brain: 02/19/2019 at 7:09 AM IMPRESSION: 1. Question a punctate focus of restricted diffusion in the left aspect of the kandice. A tiny acute to subacute acute infarct is not excluded. 2. No additional foci of restricted diffusion are identified. 3. There is no hemorrhage or mass effect. Neurology consulted: Further stroke work-up includes: CT angiogram of head: No significant stenosis, occlusion, or aneurysm within the [place]. CTA of neck: No significant stenosis, occlusion or dissection identified within the carotid or vertebral arteries. Appreciate input from neurology (2) Left pontine stroke: CT head noncontrast 02/22/2019, no acute change noted MRI of brain: 02/20/2019: 6:14 PM 1. Increased size of an acute infarct left central kandice. 2. This currently measures 11 x 7 mm and has increased from a prior measurement of 3 mm. PT OT's/speech eval, appreciate input Severe dysphagia, on NG tube, Intubated for respiratory failure on 02/21/2018 (3) Respiratory failure requiring intubation: 02/22/2019 Tolerated CPAP trial for few hours, Started on Zosyn for possible ventilator associated pneumonia Worsening of neurological decline noted off sedation Secondary to above Patient noted to have respiratory distress, utilizing abdominal muscles to breathe When asked: Regarding feeling of shortness of breath, patient Nodded "no" Appreciate input from branch account manager: Differential also includes Obstructive sleep apnea/anxiety/central apnea secondary to brain stem/pontine stroke Nasal trumpet inserted by branch account manager, showed no evidence of improvement breathing Low-dose Ativan, did not improve the symptom as well After discussing with family members,(branch account manager spoke with patient yesterday regarding intubation, was willing/nodded "YES" ) Patient is intubated, for respiratory support/airway protection in the setting of acute mid brain stroke (4) Aphasia due to acute cerebrovascular accident (CVA): Remains sinus,, no response noted with painful stimuli, diminished brainstem reflexes,: intubated, to provide respiratory support for brainstem stroke Secondary to above: Acute left pontine stroke Expressive aphasia, patient is able to understand and communicate, follow commands accurately-by nodding head yes/no Was also able to write yesterday to communicate Severe dysphasia noted secondary to stroke (5) Hypertensive emergency: Acute CVA Presented with BP in 200s o Home regimen: Coreg 12.5 mg twice daily, losartan hydrochlorothiazide daily Received IV labetalol 10 mg, Coreg 12.5 mg in ER Nicardipine drip discontinued, as patient blood pressure remains stabilized -Permissive hypertension in the setting of acute CVA Low-dose Norvasc 5 mg daily ordered via NG tube (6) Diabetes mellitus: Recent HBA1C 8.8 Home regimen: Insulin Lantus 44 units nightly, insulin NovoLog 10 units AC at bedtime -Appreciate input for glycemic management in ICU Patient started with IV insulin protocol for glycemic management Subjective She was intubated to protect her airway yesterday Neurological function, major brainstem reflexes appeared to be diminished today, Taken off sedation, was on CPAP trial, tolerated first few hours, Noted to have diminished blinking reflex, doll's eye movement, eyes are open, p upils are nonreactive light No grimaces noted with painful stimuli, neurology and critical care aware Sedation/propofol will be discontinued No discomfort noted off sedation while on vent Patient spiked temperature, had purulent secretion from the ET tube, concern for ventilator associated pneumonia, started with Zosyn Overall prognosis remains very poor family: Daughter and son present at bedside, and aware Does not want to escalate treatment if prognosis is persistent vegetative state Patient specifically mentioned to her children that she never wanted feeding tube, tracheostomy Patient will be kept off his sedation/propofol overnight Neurochecks Neuro evaluation in a.m. by critical care and neurology CODE STATUS changed to DNR/DNI as per family wish Physical Exam Constitutional: + mechanically ventilated Eyes: + anicteric sclerae Eyes are open, no gaze preference, tracking noted Positive doll's eye movement, no pupillary reflex noted ENMT: ET tube present Neck: trachea midline, no thyromegaly Gastrointestinal (Abdomen): Inspection/Auscultation: normal bowel sounds Percussion/Palpation: abdomen soft Neurologic: Comatose, on ventilator Minimum brainstem is noted bilateral paraplegia, no Movement on any extremities at rest or with painful stimuli Results & Data Vital Signs (Past 12 Hours) Vital Signs Temp Pulse Pulse Resp BP BP Pulse Ox 02/22/19 16:00 93 H 147/73 H 95 02/22/19 15:30 96 H 154/66 H 94 02/22/19 15:00 101 H 142/69 H 94 02/22/19 14:30 99 H 152/70 H 92 02/22/19 14:00 98 H 130/68 91 02/22/19 13:35 105 H 28 H 98 02/22/19 13:30 99 H 153/78 H 97 02/22/19 13:00 37.8 C H 99 H 141/76 H 95 02/22/19 12:30 96 H 145/77 H 95 02/22/19 12:00 97 H 156/78 H 96 02/22/19 11:30 104 H 24 145/90 H 100 02/22/19 11:00 103 H 144/78 H 94 02/22/19 10:30 105 H 158/78 H 94 02/22/19 10:00 97 H 155/73 H 95 02/22/19 09:30 91 H 141/67 H 95 02/22/19 09:00 92 H 144/67 H 95 02/22/19 08:30 95 H 146/72 H 96 02/22/19 08:04 95 H 23 95 02/22/19 08:00 105 H 147/75 H 99 02/22/19 07:57 96 H 18 95 02/22/19 07:30 94 H 146/69 H 95 02/22/19 06:00 98 H 18 146/68 H 94 (1) Diabetes mellitus Chronic kidney disease stage: stage 3 (moderate) Diabetes mellitus complication detail: with chronic kidney disease Diabetes mellitus complication status: with kidney complications Diabetes mellitus termite control servicer insulin use: with termite control servicer use Diabetes mellitus type: type 2 Qualified Code(s): E11.22 - Type 2 diabetes mellitus with diabetic chronic kidney disease; N18.3 - Chronic kidney disease, stage 3 (moderate); Z79.4 - snf (current) use of insulin
[2019-02-22] MEDS: INSULIN REGULAR 250 UNITS in SODIUM CHLORIDE 0.9% 247.5 ML IV SCH (18:44)
--- NOTE | 2019-02-22 21:42 | Progress Note ---
DATE: 02/22/2019 SUBJECTIVE: I am seeing Mrs. Razo in followup of a left pontine infarction with a prior history of a large deep white matter infarction in the right hemisphere. No high-grade vertebrobasilar stenosis is noted and this is likely an infarct of a small vessel that is more in the paramedian pontine vessels. OBJECTIVE: Today, she is more awake and alert. She will blink her eyes to command, but not necessarily accurately to question. She is on CPAP presently which represents an improvement. She appears alert. Her eyes are open. Her pupils are more mid position and reactive than they had been yesterday. No fixed gaze preference. Doll's eyes were present. Corneal responses were diminished bilaterally. She did not grimace to pain and there appears to be more right facial weakness than left, although she is intubated. There is no withdrawal to spontaneous pain. Reflexes are symmetric. Toes are bilaterally upgoing. Cerebellar, sensory not testable. IMPRESSION: Left medial pontine infarction, likely lacunar, no high-grade posteroir circulation stenosis. PLAN: Continue gradual reduction of blood pressure. Avoid dehydration. Antiplatelet therapy with aspirin per rectum if needed. The patient appears to be getting Plavix and aspirin 81 via NG tube and that is very reasonable and appropriate. Continue risk factor modification, supportive care. I have discussed the patient's case with her daughter and answered available questions. I reviewed a CT of the head from today, which appeared unchanged to the MRI performed yesterday. Dr. Narayan will take the case over tomorrow. We will follow with you. PÉREZ
[2019-02-22] MEDS: PEPTAMEN INTENSE VHP 1.0 CAL 1,000 ML BAG OG SCH (22:34)
[2019-02-23] MEDS: PIPERACILLIN/TAZOBACTAM 4.5 GM in DEXTROSE 5% 100 ML IV SCH ×2 (01:42→10:21)
[2019-02-23 04:39] LABS: Basophils # (auto) 0.03 K/uL (0-0.2); Basophils % (auto) 0.2 %; Eosinophils % (auto) 2.3 %; Hematocrit (blood only) 35.5 % (37-47); Hemoglobin 11.6 g/dL (12.0-16.0); Immature Granulocytes # (auto) 0.06 K/uL (0.00-0.02); Immature Granulocytes % (auto) 0.5 %; Lymphocytes % (auto) 20.3 %; Mean Corpuscular Hgb Conc 32.7 g/dL (32-36); Mean Corpuscular Volume 81.2 fL (80-100); Mean Platelet Volume 9.4 fL (7.4-10.4); Monocytes # (auto) 0.87 K/uL (0.11-0.59); Monocytes % (auto) 6.5 %; Neutrophils # (auto) 9.33 K/uL (1.4-6.5); Neutrophils % (auto) 70.2 %; Platelet Count 252 K/uL (130-400); RDW Coefficient of Variation 15.7 % (11.5-14.5); RDW Standard Deviation 46.7 fL (36.4-46.3); Red Blood Count 4.37 M/uL (4.2-5.4); White Blood Count 13.29 K/uL (4.8-10.8)
[2019-02-23 05:05] LABS: BUN Creatinine Ratio 30.2 (10-20); Calcium 8.5 mg/dl (8.5-10.1); Creatinine Clr Calc Pharmacy 95.4 ml/min; Est GFR (African American) 105.8; Est GFR (Non-African American) 91.3; Phosphorus 3.7 mg/dl (2.5-4.9); Potassium 3.8 mmol/L (3.5-5.1)
[2019-02-23] MEDS: HEPARIN SOD 5,000 UNIT/0.5 ML VIAL SQ SCH (05:55)
--- NOTE | 2019-02-23 07:39 | Operative Report ---
DATE OF OPERATION: 02/21/2019 PROCEDURE: Right-sided triple lumen central venous catheter central line placement. INDICATIONS: Administration of medication in a patient with hypertensive urgency and a stroke. SEDATION: The patient was sedated on the ventilator on mechanical ventilation with propofol and local anesthesia with lidocaine was used. CONSENT: Informed consent was obtained from the patient's daughter as the patient was unable to give consent. MONITORING: Throughout the procedure, the patient was monitored with continuous ECG tracing, blood pressure tracing and pulse oximetry. DESCRIPTION OF THE PROCEDURE: The right aspect of the neck was prepared and draped in the usual sterile fashion. The ultrasound probe was then unsheathed in the sterile jacket and used to locate the internal jugular on the right side, midway between the angle of the jaw and the sternal notch. Lidocaine topically was applied to the skin and the subcutaneous tissue. Introducer needle was inserted under realtime visualization while applying aspiration to the syringe. When blood flow back was noted in the syringe, the syringe was disconnected and the guidewire was inserted through the needle. The tract was dilated and a triple lumen central venous catheter was inserted over the guidewire in the usual Seldinger fashion. Blood flow back was obtained from all 3 ports which were then flushed with normal saline. The line was sutured at the ingrid of 16 cm on the skin. COMPLICATIONS: None apparent. Post-procedure chest x-ray confirmed the tip of the catheter in the superior vena cava and absence of pneumothorax on the right side. I attest to the content of the Intraoperative Record and any orders documented therein. Any exceptions are noted below. [facility]
[2019-02-23] MEDS: ATORVASTATIN 40 MG TAB GT SCH (07:57)
[2019-02-23] MEDS: ASPIRIN 81 MG CHEW NG SCH (07:57)
[2019-02-23] MEDS: AMLODIPINE BESYLATE 5 MG TAB PO SCH (07:57)
[2019-02-23] MEDS: LANSOPRAZOLE 30 MG SOLTAB NG SCH (07:57)
[2019-02-23] MEDS: CLOPIDOGREL BISULFATE 75 MG TAB PO SCH (07:57)
[2019-02-23] MEDS: MAGNESIUM OXIDE 400 MG TAB PO SCH (07:57)
--- NOTE | 2019-02-23 11:21 | Pharmacy Report ---
Pharmacy Glycemic Short Note 2 - Date of Service February 23, 2019 - Glycemic Short BSG Results (Last 24 hours): 02/22/19 02/22/19 02/22/19 12:19 13:08 14:49 Glucose POC Glucose 116 H 123 H 133 H 02/22/19 02/22/19 02/22/19 15:58 17:08 17:44 Glucose POC Glucose 134 H 131 H 125 H 02/22/19 02/22/19 02/23/19 20:07 22:06 00:01 Glucose POC Glucose 141 H 150 H 161 H 02/23/19 02/23/19 02/23/19 01:59 03:57 04:27 Glucose 186 H POC Glucose 166 H 196 H 02/23/19 02/23/19 02/23/19 05:04 06:03 07:24 Glucose POC Glucose 152 H 168 H 170 H 02/23/19 02/23/19 02/23/19 08:10 09:09 10:09 Glucose POC Glucose 187 H 174 H 187 H 02/23/19 11:10 Glucose POC Glucose 186 H OUTPATIENT ANTIDIABETIC REGIMEN: * Basaglar 44 units Q HS * Novolog 10 units w/ meals * Metformin 1 gm PO BID * A1c = 8.8% 02/20/19 ASSESSMENT: 02/23 * Pt remains on IV insulin drip this AM, currently infusing at 7.8 units/hr (ran at 5.7-6.8units/hr most of the night but BSGs may be trending higher due to reduced sedation this AM) * Tube feeds (Peptamen VHP) advanced to goal rate (80cc/hr) at midnight * Glycemic control acceptable at this time * There may be attempts to extubate today, uncertain if tube feedings will be stopped after extubation. Given these uncertainties and good control with insulin infusion, would recommend continuing the drip at this time. * If we know that patient will be continued on tube feeds, we can consider initiation of a SQ regimen based upon insulin infusion rates 02/22 * BSGs remained elevated throughout the day yesterday despite IV insulin infusion, likely due to ongoing stressors and upwards titration of continuous tube feedings. BSGs are now within goal range however. * IV insulin infusion continues this AM, most recently running at 7.1 units/hr. * Tube feeds (Peptamen VHP) are currently @40cc/hr with orders to titrate up to goal of 80cc/hr * She has developed a fever and increasing WBC leading to increased suspicion of infxn. ABX therapy broadened last evening. * Given critical illness and recent neurologic insult, IV insulin drip remains safest and most appropriate treatment modality for glycemic control 02/21 * Type 2 diabetic admitted for CVA * She has been admitted to the ICU for management of worsening CVA symptoms and hypertension * This AM she did require intubation * BSGs have been in the 200's and given her neurologic injury, tight glycemic control is imperative. Prevention of both hyperglycemia and hypoglycemia is best achieved with an IV insulin infusion in this setting. * She will likely be initiated on tube feeds today. Will allow IV insulin infusion to cover carbs provided in feedings to prevent "peaks and valleys" associated with Regular SQ insulin administration. PLAN FOR INPATIENT GLYCEMIC CONTROL: * Hold outpatient oral diabetes medications (metformin) * Continue IV insulin infusion, per moderate stress protocol * Goal range: 120-180mg/dL * Do not use Novolog SQ to cover carbs in contiuous tube feedings as this can lead to "peaks" and "troughs" and fluctuating IV infusion rates PLAN FOR DISCHARGE: * To be determined
--- NOTE | 2019-02-23 11:58 | Hospitalist Progress Note ---
Date of Service February 23, 2019 Assessment & Plan (1) Acute CVA (cerebrovascular accident): ACUTE LEFT PONTINE CVA: 02/23/2019: Patient is terminally extubated after multiple discussion with patient and family members Started on morphine drip, comfort care Patient is showing visible evidence of respiratory failure, struggling to breathe- using abdominal muscle Increased amount of secretion with gurgling sound, no improvement on suction, Ordered to continue sublingual atropine drops, scopolamine patch Extremely poor prognosis, terminal status Patient is a DNR/DNI, On comfort care, morphine drip to help with symptoms of respiratory failure 02/22/2019: Remains intubated, noted to have decline in neurological status/brainstem reflexes, which is usually noted in large brainstem stroke causing "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 Gabriel Barr-scanned in the system, As per the documentation by neurology: Patient complained of right facial numbness at 3 PM, and episode of aphasia lasting 30 sec Symptom recurred in route with EMS On arrival to [facility] ER patient was aphasic but without obvious facial droop or new hemiparesis Initial blood pressure 210/131 Patient was given 10 mg IV labetalol: Repeat blood pressure 185/108 CT head noncontrast: 1. Subacute right periventricular infarct. 2. 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 3. No acute intracranial hemorrhage. NIH SS score: Total score 3 (2-left arm weakness/some effort against gravity/1-dysarthria/slurring of words) NIH SS score repeat: Total score 5 (1- Dysarthria/1-left arm drift/3mute/no one-step command) Reason for repeat: Condition worsening No TPA was recommended: Reason for rejection of TPA in 3-hour window: Exam returned to normal with BP reduction per [facility] : Recommend treatment for hypertensive urgency, standard procedure is to reduce pressure by no more than 25% in first hour Second stroke alert called at 6 am 02/20/2019 Patient was noted to be aphasic as per RN, noted to be tachypneic SBP 130 Stroke alert was called by [facility] hospitalist/accounts clerk Dr. Sánchez Hurt at 6 AM MRI brain: 02/20/2019 at 0441 questionable punctate focus of restricted diffusion in the left aspect of kandice. A tiny acute or subacute infarct is not excluded CT head noncontrast: 02/20/2015, 6:45 AM No evidence of hemorrhage, Equivocal visualization of the punctate left pontine infarct identified on MRI performed earlier in the day Pt was transferred to ICU Dr. 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 Question a punctate focus of restricted diffusion in the left aspect of the kandice. A tiny acute to subacute acute infarct is not excluded. 2. No additional foci of restricted diffusion are identified. 3. There is no hemorrhage or mass effect. MRI of brain: 02/20/2019: 6:14 PM 1. Increased size of an acute infarct left central kandice. 2. This currently measures 11 x 7 mm and has increased from a prior measurement of 3 mm. PT OT's/speech eval, appreciate input Severe dysphagia, on NG tube, Intubated for respiratory failure on 02/21/2018 (3) Respiratory failure requiring intubation: 02/22/2019 Tolerated CPAP trial for few hours, Started on Zosyn for possible ventilator associated pneumonia Worsening of neurological decline noted off sedation Secondary to above Patient noted to have respiratory distress, utilizing abdominal muscles to breathe When asked: Regarding feeling of shortness of breath, patient Nodded "no" Appreciate input from wealth management advisor: Differential also includes Obstructive sleep apnea/anxiety/central apnea secondary to brain stem/pontine stroke Nasal trumpet inserted by wealth management advisor, showed no evidence of improvement breathing Low-dose Ativan, did not improve the symptom as well After discussing with family members,(wealth management advisor spoke with patient yesterday regarding intubation, was willing/nodded "YES" ) Patient is intubated, for respiratory support/airway protection in the setting of acute mid brain stroke (4) Aphasia due to acute cerebrovascular accident (CVA): Remains sinus,, no response noted with painful stimuli, diminished brainstem reflexes,: intubated, to provide respiratory support for brainstem stroke Secondary to above: Acute left pontine stroke Expressive aphasia, patient is able to understand and communicate, follow commands accurately-by nodding head yes/no Was also able to write yesterday to communicate Severe dysphasia noted secondary to stroke NG tube placed On comfort care, morphine drip, Extremely poor prognosis with terminal status (5) Hypertensive emergency: Acute CVA Presented with BP in 200s o Home regimen: Coreg 12.5 mg twice daily, losartan hydrochlorothiazide daily Received IV labetalol 10 mg, Coreg 12.5 mg in ER Nicardipine drip discontinued, as patient blood pressure remains stabilized -Permissive hypertension in the setting of acute CVA On morphine drip/comfort care (6) Diabetes mellitus: Recent HBA1C 8.8 Home regimen: Insulin Lantus 44 units nightly, insulin NovoLog 10 units AC at bedtime -Appreciate input for glycemic management in ICU Patient started with IV insulin protocol for glycemic management All lab work, IV medications discontinued except for comfort care, morphine CODE STATUS: DNR/DNI Disposition: Very poor prognosis, patient likely will during this hospital stay Subjective Attending note 1:26 PM: Patient terminally extubated at 12:38 On comfort care Noted to have significant secretions, gurgling sound, in respiratory distress, utilizing abdominal muscle Suction provided, with minimum improvement of respiratory distress Order for sublingual atropine, scopolamine patch, given 1 dose of IV Ativan, IV morphine utilized She continues to struggle to breathe, diaphoretic and visible distress/with audible gurgling sound Family members present at bedside, once patient to be comfortable Patient started with morphine drip with family approval All other medications, NG tube, tube feeding discontinued-except for medication to control secretions, anxiety, comfort care At 10:30 AM Patient remained mechanically ventilated/intubated On CPAP trial this morning IV propofol drip has been discontinued since 3 AM this morning, No sedation or hypnotics given Patient appears to be awake and alert Able to follow commands, flaccid paralysis noted on right upper and lower extremity, Able squeeze left hand on request Able to wiggle toes on left foot, elevate left leg few inches off the bed, Can follow /track with eyes, Blinking eyes to answer questions " Yes /NO " Family mentions patient smiled earlier when son and daughter were talking to her, Moves her left foot away, purposefully Patient appears to be in "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, leading to quadriplegia, severe dysphagia, respiratory failure, unable to control muscles for respiration or swallowing, Cognition appears to be remain intact Lengthy discussion with family members, daughter -Nataly and son, and sister-by Intesitvist Dr Richard and my self At present patient is DNR/DNI Option for continued weaning trial, if patient fails to wean from ventilator, tracheostomy, feeding tube placement, and transition to long-term acute care for rehab discussed Patient blinks and shakes her head " NO " to that Family also confirms, patient expressed her wishes in the past, she never wanted to be machine,/ventilator dependent, Did not want to be kept alive if she cannot be independent Pipe Processor- provided counseling to the patient and family members, Without tracheostomy,if pt is extubated today -Without the option to reintubate, high likelihood that patient will from respiratory failure Patient nods" YES" confirms that she understands it - and wants to proceed that way-and shakes her head that she wants the ET tube to be out today Family members in agreement to honor her wish will cont to monitor in ICU give time for the family members to be with pt and other family members to arrive pt will be terminally extubated later today when patient and family are ready will continue to provide support to family and patient during this difficult times Physical Exam Constitutional: Minimum exam secondary to comfort care/terminal status Severe respiratory distress, grunting breath, audible, gurgling sound Neurologic: Paraplegic, in respiratory failure after extubation, secondary to Mid brain /pontine stroke Results & Data Vital Signs (Past 12 Hours) Vital Signs Temp Pulse Pulse Resp BP BP Pulse Ox 02/23/19 08:00 89 02/23/19 07:39 96 H 18 95 02/23/19 06:00 81 16 172/77 H 95 02/23/19 05:55 82 18 96 02/23/19 05:00 81 17 151/72 H 95 02/23/19 04:00 37.9 C H 92 H 20 161/74 H 96 02/23/19 03:00 88 18 158/82 H 96 02/23/19 02:15 98 H 19 96 02/23/19 02:09 92 H 177/75 H 02/23/19 02:00 97 H 19 177/75 H 97 02/23/19 01:00 86 16 144/70 H 97 02/23/19 00:00 38 C H 91 H 18 162/75 H 98 (1) Diabetes mellitus Chronic kidney disease stage: stage 3 (moderate) Diabetes mellitus complication detail: with chronic kidney disease Diabetes mellitus complication status: with kidney complications Diabetes mellitus ad terminal makeup operator insulin use: with ad terminal makeup operator use Diabetes mellitus type: type 2 Qualified Code(s): E11.22 - Type 2 diabetes mellitus with diabetic chronic kidney disease; N18.3 - Chronic kidney disease, stage 3 (moderate); 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
[2019-02-23] MEDS: PROPOFOL 1,000 MG/100 ML VIAL IV SCH (12:33)
[2019-02-23] MEDS ORDERED: LORazepam 0.5 MG/1 ML VIAL IV PRN (12:33)
[2019-02-23] MEDS ORDERED: MoRPHine SULFATE 2 MG/ML CARP IV PRN (12:33)
--- NOTE | 2019-02-23 13:14 | Critical Care Progress Note ---
Date of Service February 23, 2019 Assessment & Plan (1) Diabetes mellitus: (2) CVA (cerebral vascular accident): (3) Hypertensive emergency: (4) Admitted to intensive care unit: 63 yo female with h/o DM HTN and prior storkes admitted with brainstem infarct and she is out of TPA window symptoms evolving with aphasia and R sided weakness. Also she is in hypertensive emergency and it is controlled by nicardipine, now terminally extubated for comfort measures hold blood draws Generous dyspneolysis with morphine O2 supplementation Will continue ASA Plavix and atorvastatin NPO secretion control with scopolamine Subjective The patient continues to show signs of right hemiparesis and inability to protect airway. We had numerous discussions with the family and gave them options of rehab/trach/feeding tube and they are all adamant together with the patient herself do not want the Mechanical ventilator The sister asked her about her wishes while doctor Portillo and myself were in the room and she indicated she does not want the tube and they wanted it out now She was terminally extubated and she is on comfort measures. Physical Exam Constitutional: well nourished, + morbidly obese and + behavioral limitations Eyes: PERRL, conjunctivae normal, anicteric sclerae ENMT: external ear and nose normal, oropharynx normal Neck: trachea midline, no thyromegaly Respiratory: She is etubated and again she shows stridor and inability to clear secretions. Cardiovascular: RRR, no murmur, no edema Gastrointestinal (Abdomen): normal bowel sounds, soft, nontender, no hepatosplenomegaly Musculoskeletal: no cyanosis or clubbing, extremities motor strength 5/5 Skin: no rashes, warm and dry Neurologic: unble to move RUE and RLE moves head but unable to speak. Moves eyes as well and answers direct questions adequately. Motor power in the LUE 4/5 as well as LLE Results & Data Vital Signs (Past 12 Hours) Vital Signs Temp Pulse Pulse Resp BP BP Pulse Ox 02/23/19 12:00 37.3 C 93 H 18 168/79 H 96 02/23/19 11:00 93 H 19 161/75 H 93 02/23/19 10:00 92 H 23 180/78 H 95 02/23/19 09:00 91 H 17 168/75 H 95 02/23/19 08:00 37.5 C 92 H 18 165/83 H 98 02/23/19 07:39 96 H 18 95 02/23/19 07:00 88 18 183/80 H 96 02/23/19 06:00 81 16 172/77 H 95 02/23/19 05:55 82 18 96 02/23/19 05:00 81 17 151/72 H 95 02/23/19 04:00 37.9 C H 92 H 20 161/74 H 96 02/23/19 03:00 88 18 158/82 H 96 02/23/19 02:15 98 H 19 96 02/23/19 02:09 92 H 177/75 H 02/23/19 02:00 97 H 19 177/75 H 97 (1) Diabetes mellitus Diabetes mellitus type: type 2 Diabetes mellitus superintendent container terminal insulin use: with long-term use Diabetes mellitus complication status: with kidney complications Diabetes mellitus complication detail: with chronic kidney disease Chronic kidney disease stage: stage 3 (moderate) Qualified Code(s): E11.22 - Type 2 diabetes mellitus with diabetic chronic kidney disease; N18.3 - Chronic kidney disease, stage 3 (moderate); Z79.4 - correction (current) use of insulin
[2019-02-23] MEDS: ATROPINE SULFATE 1% OP SOLN 2 ML BTL SL PRN ×3 (13:23→21:06)
[2019-02-23] MEDS: SCOPOLAMINE 1.5 MG TDSY TD SCH (13:23)
[2019-02-23] MEDS: MoRPHine SULF/NSS 250 MG/250 ML BTL IV SCH (13:28)
[2019-02-23] MEDS ORDERED: MoRPHine BOLUS FROM BAG IV ONE (13:30)
--- NOTE | 2019-02-23 14:12 | Communication Note ---
Date of Service: February 23, 2019 I have discussed Mrs. Razo"s case with Dr Nath today and have reviewed her imaging studies, laboratory studies and the notes from our blister packaging machine operator and Dr. Nath herself as well as reviewing Dr. Keli Orozco's notes from the prior several days At this point it appears that the patient and her family have elected to go with extubation and comfort measures rather than any further supportive care in light of her extensive neurologic deficits and her current essentially "locked in" state with preservation of ability to communicate using my blanks and weak hand signals yet with severe paralysis of her extremities Neurology has no further recommendations other than to maintain her antiplatelet therapy and will sign off the case at this point If she survives extubation will be most happy to return and reevaluate the situation Felice Narayan MD v
[2019-02-23] MEDS ORDERED: SCOPOLAMINE 1.5 MG TDSY TD STA (14:18)
[2019-02-23] MEDS ORDERED: CHECK SCOPOLAMINE PATCH PLACEMENT SCH (16:00)
[2019-02-23] MEDS: CHECK SCOPOLAMINE PATCH PLACEMENT SCH (16:24)
[2019-02-23] MEDS: LORazepam 0.5 MG/1 ML VIAL IV PRN (21:05)
[2019-02-24] MEDS: CHECK SCOPOLAMINE PATCH PLACEMENT SCH ×6 (00:12→23:44)
[2019-02-24] MEDS: ATROPINE SULFATE 1% OP SOLN 2 ML BTL SL PRN ×3 (00:17→16:13)
[2019-02-24] MEDS: LORazepam 0.5 MG/1 ML VIAL IV PRN ×2 (00:48→07:55)
[2019-02-24] MEDS: SCOPOLAMINE 1.5 MG TDSY TD SCH (08:28)
[2019-02-24] MEDS ORDERED: SCOPOLAMINE 1.5 MG TDSY TD SCH (10:00)
[2019-02-24] MEDS: GLYCOPYRROLATE 0.2 MG/ML VIAL IV PRN ×4 (10:07→19:15)
[2019-02-24] MEDS: MoRPHine SULF/NSS 250 MG/250 ML BTL IV SCH (14:46)
--- NOTE | 2019-02-24 18:25 | Hospitalist Progress Note ---
Date of Service February 24, 2019 Assessment & Plan (1) Acute CVA (cerebrovascular accident): COMFORT CARE /HOSPICE : Admitted with rt sided weakness /apahsia "STROKE ALERT WAS CALLED ON ADMISSION " progressed to acute left pontine CVA leading to progressive respiratory failure /aphasia /paraplegia pt and family wanted to withdrawl of care did not want tracheostomy /PEG tube /custodial rehab /halfway placement code status changed to DNR/DNI pt terminally extubated on 02/23/19 on IV morphine gtt requiring higher dose @6.5 mg/hr now for ongoing respiratory distress PRN SL atropine gtt /scopolamine patch /IV robinul ordered for increased secretion over all prognosis is terminal ACUTE LEFT PONTINE CVA: 02/23/2019: Patient is terminally extubated after multiple discussion with patient and family members Started on morphine drip, comfort care Patient is showing visible evidence of respiratory failure, struggling to breathe- using abdominal muscle Increased amount of secretion with gurgling sound, no improvement on suction, Ordered to continue sublingual atropine drops, scopolamine patch Extremely poor prognosis, terminal status Patient is a DNR/DNI, On comfort care, morphine drip to help with symptoms of respiratory failure 02/22/2019: Remains intubated, noted to have decline in neurological status/brainstem reflexes, which is usually noted in large brainstem stroke causing "locked in" syndrome 02/21/2019: Intubated for airway protection respiratory failure 02/19/2019 : Stroke alert was called called at 1837 in ER , 02/19/2019 Documentation from the [place] neuro telemetry stroke: Neurology Dr. Gabriel Barr-scanned in the system, As per the documentation by neurology: Patient complained of right facial numbness at 3 PM, and episode of aphasia lasting 30 sec Symptom recurred in route with EMS On arrival to [facility] ER patient was aphasic but without obvious facial droop or new hemiparesis Initial blood pressure 210/131 Patient was given 10 mg IV labetalol: Repeat blood pressure 185/108 CT head noncontrast: 1. Subacute right periventricular infarct. 2. 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 3. No acute intracranial hemorrhage. NIH SS score: Total score 3 (2-left arm weakness/some effort against gravity/1-dysarthria/slurring of words) NIH SS score repeat: Total score 5 (1- Dysarthria/1-left arm drift/3mute/no one-step command) Reason for repeat: Condition worsening No TPA was recommended: Reason for rejection of TPA in 3-hour window: Exam returned to normal with BP reduction per [place] [facility] : Recommend treatment for hypertensive urgency, standard procedure is to reduce pressure by no more than 25% in first hour Second stroke alert called at 6 am 02/20/2019 Patient was noted to be aphasic as per RN, noted to be tachypneic SBP 130 Stroke alert was called by [facility] hospitalist/data warehouse manager Dr. Sánchez Hurt at 6 AM MRI brain: 02/20/2019 at 0441 questionable punctate focus of restricted diffusion in the left aspect of kandice. A tiny acute or subacute infarct is not excluded CT head noncontrast: 02/20/2015, 6:45 AM No evidence of hemorrhage, Equivocal visualization of the punctate left pontine infarct identified on MRI performed earlier in the day Pt was transferred to ICU Dr. 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 Question a punctate focus of restricted diffusion in the left aspect of the kandice. A tiny acute to subacute acute infarct is not excluded. 2. No additional foci of restricted diffusion are identified. 3. There is no hemorrhage or mass effect. MRI of brain: 02/20/2019: 6:14 PM 1. Increased size of an acute infarct left central kandice. 2. This currently measures 11 x 7 mm and has increased from a prior measurement of 3 mm. PT OT's/speech eval, appreciate input Severe dysphagia, on NG tube, Intubated for respiratory failure on 02/21/2018 (3) Respiratory failure requiring intubation: Secondary to above- Patient noted to have respiratory distress, utilizing abdominal muscles to breathe Patient is intubated, for respiratory support/airway protection in the setting of acute mid brain stroke extubated terminally on 02/23/2019 as per Pt and family wish -as did not want to prolong life dependent on ventilator /trachesotomy /PEG tube continue comfort care Subjective pt remains obtunded on comfort care morphine gtt , currently @6.5mg/hr on oxy mask coarse breathing /audible gurgling sound noted has bilateral scopolamine patch /iV intermittent Robinul/SL atropine drop to clear suction laboured breathing noted with intermittent apneic spell family members -Sister /daughter /son present at bedside feels that pt is less struggling to breath , and aware that brief spell of apnea usually the sign of impending respiratory failure family is happy with the current care provided by nursing Physical Exam Physical Exam: Minimum exam due to comfort measure /terminal status /hospice : GENERAL : Obtunded , coarse breathing sound noted pt using abdominal muscles to breath 2-3 secs of apnea /breathing pause noted intermittnelty
[2019-02-25] MEDS: MoRPHine SULF/NSS 250 MG/250 ML BTL IV SCH (00:11)
[2019-02-25] MEDS: ATROPINE SULFATE 1% OP SOLN 2 ML BTL SL PRN ×3 (08:05→15:02)
[2019-02-25] MEDS: GLYCOPYRROLATE 0.2 MG/ML VIAL IV PRN ×3 (08:05→15:02)
[2019-02-25] MEDS: CHECK SCOPOLAMINE PATCH PLACEMENT SCH ×6 (09:53→23:56)
[2019-02-25] MEDS: ACETAMINOPHEN 1,000 MG/100 ML VIAL IV PRN ×2 (12:31→22:06)
--- NOTE | 2019-02-25 15:19 | Hospitalist Progress Note ---
Date of Service February 25, 2019 Assessment & Plan (1) Acute CVA (cerebrovascular accident): Worsening acute infarct left central kandice For comfort care only Patient remains unresponsive No apparent distress at rest We will continue current medications and keep her comfortable Discussed with the family member Below is the detailed hospital course since admission as documented by the other hospitalist : COMFORT CARE /HOSPICE : Admitted with rt sided weakness /apahsia "STROKE ALERT WAS CALLED ON ADMISSION " progressed to acute left pontine CVA leading to progressive respiratory failure /aphasia /paraplegia pt and family wanted to withdrawl of care did not want tracheostomy /PEG tube /terminal block assembler rehab /correction placement code status changed to DNR/DNI pt terminally extubated on 02/23/19 on IV morphine gtt requiring higher dose @6.5 mg/hr now for ongoing respiratory distress PRN SL atropine gtt /scopolamine patch /IV robinul ordered for increased secretion over all prognosis is terminal ACUTE LEFT PONTINE CVA: 02/23/2019: Patient is terminally extubated after multiple discussion with patient and family members Started on morphine drip, comfort care Patient is showing visible evidence of respiratory failure, struggling to breathe- using abdominal muscle Increased amount of secretion with gurgling sound, no improvement on suction, Ordered to continue sublingual atropine drops, scopolamine patch Extremely poor prognosis, terminal status Patient is a DNR/DNI, On comfort care, morphine drip to help with symptoms of respiratory failure 02/22/2019: Remains intubated, noted to have decline in neurological status/brainstem reflexes, which is usually noted in large brainstem stroke causing "locked in" syndrome 02/21/2019: Intubated for airway protection respiratory failure 02/19/2019 : Stroke alert was called called at 1837 in ER , 02/19/2019 Documentation from the [place] neuro telemetry stroke: Neurology Dr. Gabriel Barr-scanned in the system, As per the documentation by neurology: Patient complained of right facial numbness at 3 PM, and episode of aphasia lasting 30 sec Symptom recurred in route with EMS On arrival to [facility] ER patient was aphasic but without obvious facial droop or new hemiparesis Initial blood pressure 210/131 Patient was given 10 mg IV labetalol: Repeat blood pressure 185/108 CT head noncontrast: 1. Subacute right periventricular infarct. 2. 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 3. No acute intracranial hemorrhage. NIH SS score: Total score 3 (2-left arm weakness/some effort against gravity/1-dysarthria/slurring of words) NIH SS score repeat: Total score 5 (1- Dysarthria/1-left arm drift/3mute/no one-step command) Reason for repeat: Condition worsening No TPA was recommended: Reason for rejection of TPA in 3-hour window: Exam returned to normal with BP reduction per [facility] : Recommend treatment for hypertensive urgency, standard procedure is to reduce pressure by no more than 25% in first hour Second stroke alert called at 6 am 02/20/2019 Patient was noted to be aphasic as per RN, noted to be tachypneic SBP 130 Stroke alert was called by [facility] hospitalist/quail farmer Dr. Sánchez Hurt at 6 AM MRI brain: 02/20/2019 at 0441 questionable punctate focus of restricted diffusion in the left aspect of kandice. A tiny acute or subacute infarct is not excluded CT head noncontrast: 02/20/2015, 6:45 AM No evidence of hemorrhage, Equivocal visualization of the punctate left pontine infarct identified on MRI performed earlier in the day Pt was transferred to ICU Dr. 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 Question a punctate focus of restricted diffusion in the left aspect of the kandice. A tiny acute to subacute acute infarct is not excluded. 2. No additional foci of restricted diffusion are identified. 3. There is no hemorrhage or mass effect. MRI of brain: 02/20/2019: 6:14 PM 1. Increased size of an acute infarct left central kandice. 2. This currently measures 11 x 7 mm and has increased from a prior measurement of 3 mm. PT OT's/speech eval, appreciate input Severe dysphagia, on NG tube, Intubated for respiratory failure on 02/21/2018 (3) Respiratory failure requiring intubation: Secondary to above- Patient noted to have respiratory distress, utilizing abdominal muscles to breathe Patient is intubated, for respiratory support/airway protection in the setting of acute mid brain stroke extubated terminally on 02/23/2019 as per Pt and family wish -as did not want to prolong life dependent on ventilator /trachesotomy /PEG tube continue comfort care Subjective 02/25 The patient was seen and examined in medical floor This is a 63-year-old female with past medical history significant for type 2 diabetes, hypomagnesemia, history of CVA, history of left-sided weakness about 8-9 years ago, hypertension, morbid obesity, osteoarthritis of hip, depression, primary insomnia, presents with stroke-like symptoms on the day of admission. Subsequent hospital course was complicated by acute stroke and the patient has been on comfort care for the last 2 days Remains unresponsive this morning Physical Exam Physical Exam: Minimal respiratory distress at rest Constitutional: + acute distress, + ill appearing and + morbidly obese Neurologic: Remains unresponsive
[2019-02-26] MEDS: CHECK SCOPOLAMINE PATCH PLACEMENT SCH ×2 (08:13)
[2019-02-26] MEDS: ACETAMINOPHEN 1,000 MG/100 ML VIAL IV PRN (10:45)
[2019-02-26] MEDS: ATROPINE SULFATE 1% OP SOLN 2 ML BTL SL PRN (11:15)
[2019-02-26] MEDS: MoRPHine SULF/NSS 250 MG/250 ML BTL IV SCH (11:43)
--- NOTE | 2019-02-26 14:27 | Hospitalist Progress Note ---
Date of Service February 26, 2019 Assessment & Plan (1) Acute CVA (cerebrovascular accident): Worsening acute infarct left central kandice For comfort care only Patient remains unresponsive No apparent distress at rest We will continue current medications and keep her comfortable Discussed with the family member Remains critical-again discussed with the family members involved. Reassured that she will be kept comfortable Below is the detailed hospital course since admission as documented by the other hospitalist : COMFORT CARE /HOSPICE : Admitted with rt sided weakness /apahsia "STROKE ALERT WAS CALLED ON ADMISSION " progressed to acute left pontine CVA leading to progressive respiratory failure /aphasia /paraplegia pt and family wanted to withdrawl of care did not want tracheostomy /PEG tube /ferry terminal agent rehab /senior care placement code status changed to DNR/DNI pt terminally extubated on 02/23/19 on IV morphine gtt requiring higher dose @6.5 mg/hr now for ongoing respiratory distress PRN SL atropine gtt /scopolamine patch /IV robinul ordered for increased secretion over all prognosis is terminal ACUTE LEFT PONTINE CVA: 02/23/2019: Patient is terminally extubated after multiple discussion with patient and family members Started on morphine drip, comfort care Patient is showing visible evidence of respiratory failure, struggling to breathe- using abdominal muscle Increased amount of secretion with gurgling sound, no improvement on suction, Ordered to continue sublingual atropine drops, scopolamine patch Extremely poor prognosis, terminal status Patient is a DNR/DNI, On comfort care, morphine drip to help with symptoms of respiratory failure 02/22/2019: Remains intubated, noted to have decline in neurological status/brainstem reflexes, which is usually noted in large brainstem stroke causing "locked in" syndrome 02/21/2019: Intubated for airway protection respiratory failure 02/19/2019 : Stroke alert was called called at 1837 in ER , 02/19/2019 Documentation from the [place] neuro telemetry stroke: Neurology Dr. Gabriel Barr-scanned in the system, As per the documentation by neurology: Patient complained of right facial numbness at 3 PM, and episode of aphasia lasting 30 sec Symptom recurred in route with EMS On arrival to [facility] ER patient was aphasic but without obvious facial droop or new hemiparesis Initial blood pressure 210/131 Patient was given 10 mg IV labetalol: Repeat blood pressure 185/108 CT head noncontrast: 1. Subacute right periventricular infarct. 2. 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 3. No acute intracranial hemorrhage. NIH SS score: Total score 3 (2-left arm weakness/some effort against gravity/1-dysarthria/slurring of words) NIH SS score repeat: Total score 5 (1- Dysarthria/1-left arm drift/3mute/no one-step command) Reason for repeat: Condition worsening No TPA was recommended: Reason for rejection of TPA in 3-hour window: Exam returned to normal with BP reduction per [place] [facility] : Recommend treatment for hypertensive urgency, standard procedure is to reduce pressure by no more than 25% in first hour Second stroke alert called at 6 am 02/20/2019 Patient was noted to be aphasic as per RN, noted to be tachypneic SBP 130 Stroke alert was called by [facility] hospitalist/mounter clarinets Dr. Sánchez Hurt at 6 AM MRI brain: 02/20/2019 at 0441 questionable punctate focus of restricted diffusion in the left aspect of kandice. A tiny acute or subacute infarct is not excluded CT head noncontrast: 02/20/2015, 6:45 AM No evidence of hemorrhage, Equivocal visualization of the punctate left pontine infarct identified on MRI performed earlier in the day Pt was transferred to ICU Dr. 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 Question a punctate focus of restricted diffusion in the left aspect of the kandice. A tiny acute to subacute acute infarct is not excluded. 2. No additional foci of restricted diffusion are identified. 3. There is no hemorrhage or mass effect. MRI of brain: 02/20/2019: 6:14 PM 1. Increased size of an acute infarct left central kandice. 2. This currently measures 11 x 7 mm and has increased from a prior measurement of 3 mm. PT OT's/speech darrylal, appreciate input Severe dysphagia, on NG tube, Intubated for respiratory failure on 02/21/2018 (3) Respiratory failure requiring intubation: Secondary to above- Patient noted to have respiratory distress, utilizing abdominal muscles to breathe Patient is intubated, for respiratory support/airway protection in the setting of acute mid brain stroke extubated terminally on 02/23/2019 as per Pt and family wish -as did not want to prolong life dependent on ventilator /trachesotomy /PEG tube continue comfort care Subjective 02/25 The patient was seen and examined in medical floor This is a 63-year-old female with past medical history significant for type 2 diabetes, hypomagnesemia, history of CVA, history of left-sided weakness about 8-9 years ago, hypertension, morbid obesity, osteoarthritis of hip, depression, primary insomnia, presents with stroke-like symptoms on the day of admission. Subsequent hospital course was complicated by acute stroke and the patient has been on comfort care for the last 2 days Remains unresponsive this morning 02/26 The patient was seen and examined in medical floor She remains unresponsive secondary to worsening of acute pontine stroke She has been on comfort care She remains critical but stable Physical Exam Physical Exam: No acute distress at rest Constitutional: + acute distress, + ill appearing and + morbidly obese Neurologic: Remains completely unresponsive Results & Data Vital Signs (Past 12 Hours) Vital Signs Temp 02/26/19 11:48 39.3 C H
--- NOTE | 2019-02-27 08:17 | Discharge Summary ---
Date of Service February 27, 2019 Admission HPI Per Admitting Provider DICTATED BY: Yann Lundberg MD DATE OF ADMISSION: 02/19/2019 CHIEF COMPLAINT: Stroke-like symptoms. HISTORY OF PRESENT ILLNESS: This is a 63-year-old female with past medical history significant for type 2 diabetes, hypomagnesemia, history of CVA, history of left-sided weakness about 8-9 years ago, hypertension, morbid obesity, osteoarthritis of hip, depression, primary insomnia, presents with stroke-like symptoms. The patient lives alone; around 3:00 p.m. she went outside with her dog when she suddenly felt numbness in the right side of the face. She tried to call her kids and could not get answer back, then she called her sister and EMS was called in and she was brought into the hospital and on the way she had a brief episode of difficulty speaking. In the ER, around 6 p.m. she suddenly became aphasic, stroke alert was called and by the time she went to CAT scan and came back, her speech came back to normal. CT of the head showed subacute right periventricular infarct, old right internal capsule infarct, no acute intracranial hemorrhage. CTA of the head and neck were unremarkable. Her symptoms improved. No TPA was given as her symptoms improved. The blood pressure was high at that time and daughter says because of her high blood pressure maybe she had symptoms. As per daughter patient wont check her blood pressure at home.. The patient is alert and awake, oriented to name and place, somewhat confused with time thinking this is 2012 though tells day and month correctly, but answers all other questions appropriately. Denies any headaches, no blurred vision, no earache, no runny nose, no sore throat. There is some cough on and off. No difficulty swallowing. On regular diet. During the episode, she had some shortness of breath but currently no shortness of breath, no chest pain, no nausea, no vomiting, no abdominal pain. Normal bowel and bladder movements. No blood in the stools or black stools, no hematuria, no burning micturition. Appetite is okay. She says that her sugars are running okay at home. She has some weakness in left side from her previous stroke, but ambulates okay. No swelling of the legs. No recent fever or chills. Admission Exam Per Admitting Provider GENERAL: The patient is obese, not in acute distress. VITAL SIGNS: Temperature 36.9, pulse 71, respiratory rate 22, blood pressure when she came in was 210/93, oxygen 94% room air. HEENT: No pallor, no icterus. Pupils equal, round, and reactive to light. NECK: No JVD, no neck masses, no carotid bruits. CARDIOVASCULAR: S1, S2 heard, regular rate and rhythm, no murmur, no gallop. RESPIRATORY SYSTEM: Normal AP diameter. No accessory muscle use. No wheezing, no crackles. ABDOMEN: Soft, bowel sounds present. Nontender. No distention. CENTRAL NERVOUS SYSTEM: 4/5 in left extremities, 5/5 in right extremities, could not lift left upper extremity, but right extremity no pronator drift. Sensation is intact. Position sense intact. Babinski negative. Alert and oriented to name, placed, could tell month and date, but thinks this is 2011. Obeys simple commands. EXTREMITIES: No edema, no erythema. Principal Diagnosis :On February at 1340 Hours. The causes of : 1)Acute Left Pontine Stroke 2)Hypertension 3)Diabetes Mellitus Note:The daughter wanted to have Autopsy done for her Mom. I spoke to her personally and explained when we go for autopsy, but she still wanted to have autopsy done. Await RESULTS of autopsy for final cause of to be amended. Discharge Exam Unresponsive to any stimuli Pupils widely dilated and nonreactive No heart sounds and respiration The patient was pronounced at 1340 hrs. on 02/26/2019 Discharge Data Allergies Allergy/AdvReac Type Severity Reaction Status Date / Time No Known Allergies Allergy Unverified 02/19/19 20:08 Consultations 02/19/19 19:39 ED Decision to Admit Stat 02/19/19 22:04 Consult Case Management - Discharge Planning Routine Consult Case Management - Discharge Planning Routine 02/20/19 08:00 Consult Neurology Routine 02/20/19 19:09 Consult Opera Singer Routine Ordered Studies 02/19/19 18:31 CT angio head w con Stat CT head/brain wo con Stat 02/19/19 18:32 CT angio neck with con Stat 02/19/19 22:04 US carotid doppler BI Routine 02/20/19 04:41 MR brain wo/w con Urgent 02/20/19 06:21 CT head/brain wo con Stat 02/20/19 16:59 MR brain wo con Stat 02/22/19 08:37 CT head/brain wo con Routine Hospital Course (1) Acute CVA (cerebrovascular accident): Worsening acute infarct left central kandice For comfort care only Patient remains unresponsive No apparent distress at rest We will continue current medications and keep her comfortable Discussed with the family member Remains critical-again discussed with the family members involved. Reassured that she will be kept comfortable Below is the detailed hospital course since admission as documented by the other hospitalist : COMFORT CARE /HOSPICE : Admitted with rt sided weakness /apahsia "STROKE ALERT WAS CALLED ON ADMISSION " progressed to acute left pontine CVA leading to progressive respiratory failure /aphasia /paraplegia pt and family wanted to withdrawl of care did not want tracheostomy /PEG tube /snf rehab /intermediate placement code status changed to DNR/DNI pt terminally extubated on 02/23/19 on IV morphine gtt requiring higher dose @6.5 mg/hr now for ongoing respiratory distress PRN SL atropine gtt /scopolamine patch /IV robinul ordered for increased secretion over all prognosis is terminal ACUTE LEFT PONTINE CVA: 02/23/2019: Patient is terminally extubated after multiple discussion with patient and family members Started on morphine drip, comfort care Patient is showing visible evidence of respiratory failure, struggling to breathe- using abdominal muscle Increased amount of secretion with gurgling sound, no improvement on suction, Ordered to continue sublingual atropine drops, scopolamine patch Extremely poor prognosis, terminal status Patient is a DNR/DNI, On comfort care, morphine drip to help with symptoms of respiratory failure 02/22/2019: Remains intubated, noted to have decline in neurological status/brainstem reflexes, which is usually noted in large brainstem stroke causing "locked in" syndrome 02/21/2019: Intubated for airway protection respiratory failure 02/19/2019 : Stroke alert was called called at 1837 in ER , 02/19/2019 Documentation from the [facility] neuro telemetry stroke: Neurology Dr. Gabriel Barr-scanned in the system, As per the documentation by neurology: Patient complained of right facial numbness at 3 PM, and episode of aphasia lasting 30 sec Symptom recurred in route with EMS On arrival to [facility] ER patient was aphasic but without obvious facial droop or new hemiparesis Initial blood pressure 210/131 Patient was given 10 mg IV labetalol: Repeat blood pressure 185/108 CT head noncontrast: 1. Subacute right periventricular infarct. 2. 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 3. No acute intracranial hemorrhage. NIH SS score: Total score 3 (2-left arm weakness/some effort against gravity/1-dysarthria/slurring of words) NIH SS score repeat: Total score 5 (1- Dysarthria/1-left arm drift/3mute/no one-step command) Reason for repeat: Condition worsening No TPA was recommended: Reason for rejection of TPA in 3-hour window: Exam returned to normal with BP reduction per [facility] Neurology : Recommend treatment for hypertensive urgency, standard procedure is to reduce pressure by no more than 25% in first hour Second stroke alert called at 6 am 02/20/2019 Patient was noted to be aphasic as per RN, noted to be tachypneic SBP 130 Stroke alert was called by [facility] hospitalist/rnfa Dr. Sánchez Hurt at 6 AM MRI brain: 02/20/2019 at 0441 questionable punctate focus of restricted diffusion in the left aspect of kandice. A tiny acute or subacute infarct is not excluded CT head noncontrast: 02/20/2015, 6:45 AM No evidence of hemorrhage, Equivocal visualization of the punctate left pontine infarct identified on MRI performed earlier in the day Pt was transferred to ICU Dr. 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 Question a punctate focus of restricted diffusion in the left aspect of the kandice. A tiny acute to subacute acute infarct is not excluded. 2. No additional foci of restricted diffusion are identified. 3. There is no hemorrhage or mass effect. MRI of brain: 02/20/2019: 6:14 PM 1. Increased size of an acute infarct left central kandice. 2. This currently measures 11 x 7 mm and has increased from a prior measurement of 3 mm. PT OT's/speech eval, appreciate input Severe dysphagia, on NG tube, Intubated for respiratory failure on 02/21/2018 (3) Respiratory failure requiring intubation: Secondary to above- Patient noted to have respiratory distress, utilizing abdominal muscles to breathe Patient is intubated, for respiratory support/airway protection in the setting of acute mid brain stroke extubated terminally on 02/23/2019 as per Pt and family wish -as did not want to prolong life dependent on ventilator /trachesotomy /PEG tube continue comfort care Total Time Total Time Spent Total Time Spent (In Minutes): 20 minutes Total Time Includes: Other Discharge Plan Discharge Items Patient Disposition: Admission Data Admit Date/Time: 02/19/19 20:58 Attending Provider: Brandi Garcia Admit Provider: Yann Lundberg Primary Care Provider: Ladonna Marte Other Providers: Violetta Zaman ; Jalen Marino ; Keli Salomon ; Felice Narayan ; Keli Orozco ; Alfred Trinidad ; Rahul Hanna ; Jessica Nath Service: Medical Other DC Date/Time DO NOT enter until pt leaves facility: 02/26/19 16:41
[2019-02-27] MEDS ORDERED: SCOPOLAMINE 1.5 MG TDSY TD SCH (10:00)
== END 2019-02-26 16:41 | disposition expired | DRG 64 ==
LOC: ED 18:21 → SUATTDRO 20:58 → 2S 20:58 → 1E 02-20 18:10 → 4E 02-23 18:07